=== PATIENT | female | born 1950 | race Caucasian/White ===

== ENCOUNTER → 2017-11-17 | Outpatient (CLI) | payer MEDICAID ==
[~2017-11-17] MED LIST: ALB0.5V INH; ALPR.5T PO; ALPR1TAB21 PO; ALPR2TAB6 PO; ASP325TEC PO; ASP81CT PO; AZIT-21 PO; CETI10TA17 PO; CLOP75TA PO; CYCL10TA9 PO; DCS100C PO; DESV50TA PO; ENAL5TAB PO; EZET1TAB43 PO; FLUT1DIS26 INH; GAS RELIEF PO; GFN600TCR PO; GLIP10TA13 PO; GLIP5TAB13 PO; GUAI100L13 PO; HCT25T PO; HYDR-3714 PO; HYDR12.570 PO; HYDR1TAB66 PO; HYDR50TA3 PO; IBP800T PO; IPRA15SP2; IPRA3AMP; IPRA3AMP IH; LACT1CAP39 PO; LACT1TAB10 PO; LANS30CA PO; LEVO500T69 PO; LEVO750T24 PO; LEVO750T6 PO; LNS30CCR PO; LRT10T PO; LVF500T PO; METH4TAB PO; METO-333 PO; METO-354 PO; NAMENDA; NFR150C PO; NITR-65 PO; OMEP20CA12 PO; ONDA-42 SL; ONDA8TAB2 PO; PHEN200T27 PO; POLY17PO23 PO; RT-COMBINH INH; SCR1T1 PO; TIOT18CA IH; TIOT18CA INH; TIOT18CA2 PO
--- NOTE | 2017-11-17 11:49 | Diagnostic Imaging Report ---
INDICATION: Routine screening. COMPARISON: Comparison is made with prior mammograms from 06/13/2013 and 08/31/2011. TECHNIQUE: 2D and 3D bilateral screening mammography was performed with computer-aided detection (CAD) system. FINDINGS: Scattered fibroglandular densities are identified bilaterally. The parenchymal pattern is stable. No spiculated mass or malignant appearing microcalcifications are seen. There are benign calcifications bilaterally. The axillae are unremarkable. IMPRESSION: No mammographic features suspicious for malignancy are identified. ACR BI-RADS Category 2: Benign findings. Result letter will be mailed to the patient. Note: At least 10% of breast cancer is not imaged by mammography. Dictated by: Dictated on workstation # [id number]
== END ==
LOC: RAD 09:28
PROVIDERS: ATTEND Nurse Practitioner Community Health
DX: Z12.31 Encounter for screening mammogram for malignant neoplasm of breast (principal)
CPT/HCPCS: 77067

== ENCOUNTER → 2019-10-31 | Outpatient (CLI) | payer MEDICAID ==
--- NOTE | 2019-10-31 13:10 | Diagnostic Imaging Report ---
INDICATION: Routine screening. Comparison is made with prior mammogram 11/17/2017 and 06/13/2013. 2-D and 3-D bilateral screening mammography was performed with CAD. Scattered fibroglandular densities are identified bilaterally. The parenchymal pattern is stable. No mass or malignant-appearing microcalcifications are seen. There are benign calcifications bilaterally. Axillae are unremarkable. IMPRESSION: BI-RADS Category 2 No mammographic features suspicious for malignancy are identified. ACR BI-RADS Category 2: Benign findings. Result letter will be mailed to the patient. Note: At least 10% of breast cancer is not imaged by mammography. Dictated by: Dictated on workstation # [id number]
== END ==
LOC: RAD 11:23
PROVIDERS: ATTEND Nurse Practitioner Community Health
DX: Z12.31 Encounter for screening mammogram for malignant neoplasm of breast (principal)
CPT/HCPCS: 77063; 77067

== ENCOUNTER → 2020-08-19 | Outpatient (CLI) | payer MEDICAID ==
[~2020-08-19] MED LIST changes: +RT-ALBUTEROL SULF 2.5 MG/3 ML PRE-MIX VIAL INH ONE
== END ==
LOC: RT 12:41
PROVIDERS: ATTEND Nurse Practitioner Family
DX: J44.9 Chronic obstructive pulmonary disease, unspecified (principal); G47.10 Hypersomnia, unspecified; Z86.69 Personal history of other diseases of the nervous system and sense organs
CPT/HCPCS: 94060; 94726; 94729

== ENCOUNTER → 2021-03-25 | Outpatient (CLI) | payer MEDICAID ==
[~2021-03-25] MED LIST changes: -RT-ALBUTEROL SULF 2.5 MG/3 ML PRE-MIX VIAL INH ONE
--- NOTE | 2021-03-26 09:49 | Diagnostic Imaging Report ---
Indication: Routine screening. Comparison is made with prior mammogram 10/31/2019 and 11/17/2017. 2-D and 3-D bilateral screening mammography was performed with CAD. Scattered fibroglandular densities are identified bilaterally. There are benign calcifications present. No mass or malignant-appearing microcalcifications are seen. Axillae are unremarkable. IMPRESSION: BI-RADS Category 2 No mammographic features suspicious for malignancy are identified. ACR BI-RADS Category 2: Benign findings. Result letter will be mailed to the patient. Note: At least 10% of breast cancer is not imaged by mammography. Dictated by: Dictated on workstation # [id number]
== END ==
LOC: RAD 14:57
PROVIDERS: ATTEND Nurse Practitioner
DX: Z12.31 Encounter for screening mammogram for malignant neoplasm of breast (principal)
CPT/HCPCS: 77063; 77067

== ENCOUNTER → 2021-10-21 | Outpatient (CLI) | payer MEDICAID | LOC: CARD 14:21 | PROVIDERS: ATTEND Physician Assistant | DX: I10 Essential (primary) hypertension (principal); R07.89 Other chest pain; E78.2 Mixed hyperlipidemia; R06.00 Dyspnea, unspecified | CPT/HCPCS: 93306 ==

== ENCOUNTER → 2021-11-10 | Outpatient (CLI) | payer MEDICAID | LOC: LABNPT 08:18 | PROVIDERS: ATTEND Internal Medicine Critical Care Medicine | DX: Z01.812 Encounter for preprocedural laboratory examination (principal); G47.33 Obstructive sleep apnea (adult) (pediatric) | CPT/HCPCS: 87636 ==

== ENCOUNTER 2021-11-12 19:27 | Outpatient (CLI) | payer MEDICAID | END 2021-11-13 06:15 | disposition home or self-care (01) | LOC: SLEEP 19:27 | PROVIDERS: ATTEND Internal Medicine Critical Care Medicine | DX: G47.33 Obstructive sleep apnea (adult) (pediatric) (principal) | CPT/HCPCS: 95810 ==

== ENCOUNTER → 2021-12-20 | Outpatient (CLI) | payer MEDICAID ==
[~2021-12-20] VITALS: Ht 165 cm; Wt 91.0 kg
[~2021-12-20] MED LIST changes: +REGADENOSON 0.4 MG/5 ML SYR (LEXISCAN) IV ONE
[2021-12-20] MEDS: CATHETER FLUSH 10 ML SYR IVP PRN ×2 (08:09→09:27)
[2021-12-20 09:26] VITALS: BP 193/102
--- NOTE | 2021-12-20 12:04 | Cardiology Stress Test Report ---
Stress Test Report Date of Procedure/Referring: Date of Procedure: Dec 20, 2021 [facility] Admitting Physician Admitting Physician: Attending Physician: Ana Maria Vizcaino Indications: HTN Baseline Heart Rate: 64 Baseline Blood Pressure: Blood Pressure Systolic: 193 Blood Pressure Diastolic: 102 Baseline Vitals Vital Signs Date Time Temp Pulse Resp B/P (MAP) Pulse Ox O2 Delivery O2 Flow Rate FiO2 12/20/21 09:26 66 16 193/102 (132) 95 Room Air Baseline EKG: Baseline EKG: NSR Summary After explaining the procedure to the patient, she signed a consent and then brought to the stress nuclear laboratory. Patient received 0.4 mg Lexiscan for stress test, ECG, heart rate and blood pres sure were monitored continuously. Resting and stress dose of radio tracer were injected, imaging was acquired and reviewed in short axis, horizontal long axis and vertical long axis views. TID: 0.98 SSS: 6 SDS: 6 EF: 61 1. Patient tolerated Lexiscan well 2. Breast attenuation with reversible ischemia involving the basal to mid anterior wall and anterior septum 3. Normal left ventricular size, ejection fraction 61% Copy Copies To 1: [facility] [place]ART[place]NEZ COLLINS MD Dec 20, 2021 12:04
== END ==
LOC: CARD 07:48
PROVIDERS: ATTEND Physician Assistant
DX: I10 Essential (primary) hypertension (principal); E78.2 Mixed hyperlipidemia; R07.89 Other chest pain; R06.00 Dyspnea, unspecified
CPT/HCPCS: 78452; 93017

== ENCOUNTER 2021-12-29 11:00 | Day surgery (SDC) | payer MEDICAID ==
[~2021-12-29] VITALS: Ht 165 cm; Wt 94.6 kg
[2021-12-29] VITALS (13 sets, daily range): BP systolic 96–184; BP diastolic 51–107
--- NOTE | 2021-12-29 09:48 | Diagnostic Imaging Report ---
INDICATION: Chest pain, shortness of breath. EXAMINATION: Portable chest at 9:18 AM. FINDINGS: The heart size and pulmonary vascularity are normal. The lungs are clear. There are no effusions or pneumothoraces. IMPRESSION: No acute abnormalities in the chest. Dictated by: Dictated on workstation # [id number]
[2021-12-29 10:28] LABS: HEMATOCRIT 42 % (35-52); HEMOGLOBIN 13.4 g/dL (11.5-16.0); MEAN CORPUSCULAR HEMOGLOBIN 29 pg (25-34); MEAN CORPUSCULAR HGB CONC 32 g/dL (32-36); MEAN CORPUSCULAR VOLUME 91 fL (80-99); MEAN PLATELET VOLUME 8.9 fL (9.0-12.2); PLATELET COUNT 496 10^3/uL (130-400); WHITE BLOOD COUNT 11.5 10^3/uL (4.3-11.0)
[2021-12-29 10:36] LABS: BILIRUBIN,URINE NEGATIVE (NEGATIVE); CLARITY,URINE CLEAR; COLOR,URINE YELLOW; GLUCOSE, URINE (UA) NEGATIVE (NEGATIVE); KETONES,URINE NEGATIVE (NEGATIVE); LEUKOCYTE ESTERASE ,URINE TRACE (NEGATIVE); NITRITE,URINE NEGATIVE (NEGATIVE); PROTEIN,URINE NEGATIVE (NEGATIVE)
[2021-12-29 10:47] LABS: ALBUMIN 3.9 GM/DL (3.2-4.5); BILIRUBIN,TOTAL 0.3 MG/DL (0.1-1.0); CALCIUM 9.3 MG/DL (8.5-10.1); CREATININE SERUM 0.71 MG/DL (0.60-1.30); POTASSIUM 4.9 MMOL/L (3.6-5.0); TOTAL PROTEIN 6.5 GM/DL (6.4-8.2)
[2021-12-29 10:57] LABS: INR 0.9 (0.8-1.4); PROTHROMBIN TIME PATIENT 12.9 SEC (12.2-14.7)
[~2021-12-29 11:00] MED LIST changes: +HEParin (CATH LAB) 2,000 ML IV ONE; +LIDOCAINE 1% INJ 20 ML VIAL ONE; +NS IV 1000 ML 1,000 ML IV SCH; +NS IV 1000 ML 1,000 ML ONE; -REGADENOSON 0.4 MG/5 ML SYR (LEXISCAN) IV ONE
[2021-12-29 11:02] LABS: BACTERIA,URINE NEGATIVE /HPF; RBC,URINE RARE /HPF; SQUAMOUS EPITHELIAL CELL,UR 0-2 /HPF; WBC,URINE 0-2 /HPF
[2021-12-29] MEDS ORDERED: FENO145T26 PO (11:08)
[2021-12-29] MEDS ORDERED: FERR-74 PO (11:08)
[2021-12-29] MEDS ORDERED: TIOT18CA2 IH (11:08)
[2021-12-29] MEDS ORDERED: NAPR-915 PO (11:08)
[2021-12-29] MEDS ORDERED: METF-478 PO ×2 (11:08→14:01)
[2021-12-29] MEDS ORDERED: ALBU2.5V4 INH (11:08)
[2021-12-29] MEDS ORDERED: LEVO100C4 PO (11:08)
[2021-12-29] MEDS ORDERED: GLIP5TAB13 PO (11:08)
[2021-12-29] MEDS ORDERED: ACET-2267 PO (11:08)
[2021-12-29] MEDS ORDERED: OXYB-52 PO (11:08)
[2021-12-29] MEDS ORDERED: MTC10T PO (11:08)
[2021-12-29] MEDS ORDERED: SIME125T PO (11:08)
[2021-12-29] MEDS ORDERED: CETI10TA17 PO (11:08)
[2021-12-29] MEDS ORDERED: LACT1TAB19 PO (11:08)
[2021-12-29] MEDS ORDERED: CLOP75TA28 PO (11:08)
[2021-12-29] MEDS ORDERED: RT-ALBUINH IH (11:08)
[2021-12-29] MEDS ORDERED: ASPI-1238 PO (11:08)
[2021-12-29] MEDS ORDERED: DOCU-143 PO (11:08)
[2021-12-29] MEDS ORDERED: LISI20TA26 PO (11:08)
[2021-12-29] MEDS ORDERED: ATOR40TA70 PO (11:08)
[2021-12-29] MEDS ORDERED: MTP25TSR PO (11:08)
[2021-12-29] MEDS ORDERED: DESV100T6 PO (11:08)
[2021-12-29] MEDS ORDERED: BUDE10.2 IH (11:08)
[2021-12-29] MEDS ORDERED: NITRO DRIP 25000 MCG/D5W 0 ML IV ONE (13:09)
[2021-12-29] MEDS ORDERED: MIDAZOLAM 2 MG/2 ML (VERSED) VIAL ONE ×2 (13:09→13:47)
[2021-12-29] MEDS ORDERED: VERAPAMIL 5 MG/2 ML (CALAN) VIAL IV ONE (13:09)
[2021-12-29] MEDS ORDERED: HEParin 1000 UNIT/ML (10ML VIAL) FOR BOLUS ONE (13:09)
[2021-12-29] MEDS ORDERED: fentaNYL INJ 100 MCG/2 ML AMP ONE ×2 (13:09→13:47)
--- NOTE | 2021-12-29 13:23 | Cardiac Procedure Note-CS/ASA ---
Pre-Procedure Note Pre-Op Procedure Note Date of Available H&P: Dec 21, 2021 Date H&P Reviewed: Dec 29, 2021 Time H&P Reviewed: : History & Physical: H&P Reviewed, Patient Examed, No changes noted Pre-Operative Diagnosis: CAD Conscious Sedation Pre-Proced Time : ASA Score 3 For ASA 3 and 4: Consider anesthesia and medical clearance. Also, for patients with a history of failed moderate sedation consider anesthesia. Airway Lungs Heart ASA score ASA 1: a normal healthy patient ASA 2: a patient with a mild systemic disease (mid diabetes, controlled hypertension, obesity ASA 3: a patient with a severe systemic disease that limits activity (angina, COPD, prior Myocardial infarction) ASA 4: a patient with an incapacitating disease that is a constant threat to life (CHF, renal failure) ASA 5: a moribund patient not expected to survive 24 hrs. (ruptured aneurysm) ASA 6: a declared brain- patient whose organs are being harvested. For emergent operations, add the letter E after the classification Mallampati Classification Grade 3 Sedation Plan Analgesia, Amnesia, Plan communicated to team members, Discussed options with patient/fam, Discussed risks with patient/fam The patient is an appropriate candidate to undergo the planned procedure, sedation, and anesthesia. The patient immediately re-assessed prior to indication. MARTÍNEZ COLLINS MD Dec 29, 2021 13:23
[2021-12-29] MEDS ORDERED: PATIENT MAY USE OWN MEDS, ALL PO SCH (14:00)
--- NOTE | 2021-12-29 14:02 | Discharge Inst-Post CATH ---
Discharge Inst-CATH/EP Problems Reviewed?: Yes Post Cardiac Cath/EP D/C Inst Follow Up/Plan Hold metformin for [address] Chang's office in 4 weeks <b>CARDIAC CATH/EP PROCEDURE DISCHARGE INSTRUCTIONS</b> ACTIVITY * Go Home directly and rest. * Limit activity of the leg (or wrist if it was used) for 7 days including aerobics, swimming, jogging, bicycling, etc. * Restrict stair-climbing for 7 days if possible, if not, climb up with your non-cath leg, then bring together on the same step. * Avoid lifting, pushing, pulling or excessive movement of the affected extremity for 7 days. * Customary sexual activity may be resumed after 2 days-use caution not to use a position that strains or causes pain to the affected extremity. * No driving for 24 hours. * NO SMOKING. * Avoid straining for bowel movements for 7 days. * Gentle walking on level ground is allowed. * Returning to work will depend on the type of procedure and the results. Your doctor will discuss this with you. CALL YOUR DOCTOR FOR ANY OF THE FOLLOWING: *If bleeding from the puncture site occurs- Apply gentle pressure to site with clean cloth and call your doctor or EMS. * If a knot or lump forms under the skin, increases in size, or causes pain. * If bruising appears to be worsening or moving further down your leg instead of disappearing. * Temperature above 101 F. CARE OF YOUR GROIN INCISION; * Bruising or purple discoloration of the skin near the puncture site is common. * You may shower only, no bathtub bathing for 5 days. Be careful to avoid slipping as your leg may feel stiff. * If a closure device was used on your femoral artery, please see the attached guide regarding care of the device and your leg. * Leave dressing on FOR 24 hours. CARE OF YOUR WRIST INCISION; * Bruising or purple discoloration of the skin near the puncture site is common. * You may shower. * DO NOT submerge wrist. * Leave dressing on FOR 24 hours. MARTÍNEZ CHANG MD Dec 29, 2021 14:02
--- NOTE | 2021-12-29 14:05 | Cardiac Cath Report ---
Cardiac Cath Report Physician (s)/Party Host/Hostess (s) Physician MARTÍNEZ COLLINS MD Pre-Procedure Diagnosis Pre-Procedure Diagnosis: CAD Post-Procedure Note Procedure Start Date: Dec 29, 2021 Name of Procedure: Left heart catheterization Findings/Procedure Note PROCEDURE NOTE: 71-year-old lady with history of diabetes mellitus, hypertension, hyperlipidemia and obesity, had an abnormal stress test, scheduled for cardiac catheterization possible PTCA. After explaining the procedure to the patient, all pros and cons were explained, all questions were answered. The patient signed the consent and then she was placed on the cardiac catheterization laboratory. Groin was prepped SL fashion local anesthesia was used. Attempt to access the right radial artery has failed, I was unable to advance a wire in the radial artery, manual pressure a pplied. Sheath placed in the right femoral artery. Matthew right and left catheter were used to access the coronary system. Matthew right was prolapsed to the left ventricular cavity, pressure was measured, pullback LV to aorta was done, no left ventriculogram was done. At the end of the procedure the sheath was removed. Closure device was deployed FINDINGS: Hemodynamics LV 152/14, end-diastolic pressure of 14 Aorta 147/75 mean of 105 ANATOMY: Left Main is free of obstructive disease Left Anterior Descending has moderate ectasia in the proximal and mid LAD with slow flow, otherwise nonobstructive disease Left Circumflex has moderate ectasia in the proximal and mid circumflex artery with slow flow nonobstructive disease Right Coronary Artery is dominant artery with diffuse ectasia and slow flow nono bstructive disease LV Gram was not done, pressure was measured CONCLUSION: 1. Moderate coronary ectasia involving the 3 coronary system with swirling of the contrast in the proximal and mid arteries nonobstructive disease 2. Normal left ventricular end-diastolic pressure DISCUSSION AND RECOMMENDATION: Continue to maximize medical therapy, continue to keep blood pressure and lipids under tight control and weight loss and exercise is recommended Anesthesia Type: Conscious Sedation Estimated blood loss (mL): 20 ml Contrast Amount: 52 ml Total Radiation Dose: 548 mGy Post-Procedure Diagnosis Post-operative diagnosis: Chest pain Coronary artery disease Hypertension Hyperlipidemia MARTÍNEZ COLLINS MD Dec 29, 2021 14:05
[2021-12-29] MEDS ORDERED: ONDANSETRON 4 MG/2 ML (SDV) Z0FRAN ONE (16:07)
[2021-12-29 16:47] LABS: HEMATOCRIT 32 % (35-52); HEMOGLOBIN 10.3 g/dL (11.5-16.0); MEAN CORPUSCULAR HEMOGLOBIN 30 pg (25-34); MEAN CORPUSCULAR HGB CONC 32 g/dL (32-36); MEAN CORPUSCULAR VOLUME 92 fL (80-99); MEAN PLATELET VOLUME 9.3 fL (9.0-12.2); PLATELET COUNT 469 10^3/uL (130-400)
--- NOTE | 2021-12-29 16:58 | Diagnostic Imaging Report ---
INDICATION: Central line placement. COMPARISON: Earlier same day. FINDINGS: Single frontal radiographic view of the chest was obtained and demonstrates interval placement of right internal jugular central venous catheter, tip of which terminates in the [id number] SVC. Cardiac silhouette and pulmonary vasculature are stable. Lungs remain clear. There is no large effusion or pneumothorax. Osseous structures show no gross acute abnormalities. IMPRESSION: 1. New right internal jugular central venous catheter as above. 2. Otherwise, stable exam of the chest. Dictated by: Dictated on workstation # [id number]
--- NOTE | 2021-12-29 17:00 | Consultation - Surgery ---
History of Present Illness History of Present Illness Patient Consulted On(gabe/time) 12/29/21 16:52 Date Seen by Provider: Dec 29, 2021 Time Seen by Provider: 16:52 History of Present Illness Consult requested by Dr. Chang for central line placement for hypotension post cath. Patient is a 71 year old female who underwent heart catheterization. In postop area became hypotensive. Not with good venous access and needing central venous access. Patient is alert and answering questions. She understands need for placement. Placing emergently. Allergies and Home Medications Allergies Coded Allergies: prednisone (Verified Allergy, Intermediate, STATES MAKES FEEL LIKES SHE IS ON METH, 09/19/11) morphine (Verified Adverse Reaction, Mild, CAUSES SEVERE VOMITTING, 09/19/11) CAUSES N/V Patient Home Medication List Home Medication List Reviewed: Yes Acetaminophen (Tylenol Extra Strength) 500 Mg Tablet, 1,000 MG PO TID PRN for PAIN-MILD (1-4), (Reported) Entered as Reported by: RADHA UGARTE on 12/29/211107 Last Action: Reviewed Albuterol Sulfate (Albuterol Sulfate) 2.5 Mg/3 Ml (0.083 %) Vial.neb, 2.5 MG INH Q6H PRN for SHORTNESS OF BREATH, (Reported) Entered as Reported by: RADHA UGARTE on 12/29/211107 Last Action: Reviewed Albuterol Sulfate (Proair Hfa) 1 Puff Puff, 2 PUFF IH Q4H PRN for SHORTNESS OF BREATH, (Reported) Entered as Reported by: RADHA UGARTE on 12/29/211107 Last Action: Reviewed Aspirin (Aspirin EC) 81 Mg Tablet.dr, 81 MG PO HS, (Reported) Entered as Reported by: RADHA UGARTE on 12/29/211107 Last Action: Reviewed Atorvastatin Calcium (Atorvastatin Calcium) 40 Mg Tablet, 40 MG PO DAILY, (Reported) Entered as Reported by: RADHA UGARTE on 12/29/211107 Last Action: Reviewed Budesonide/Formoterol Fumarate (Symbicort 160-4.5 Mcg Inhaler) 160 Mcg-4.5 Mcg/Actuation Hfa.aer.ad, 2 PUFF IH BID, (Reported) Entered as Reported by: RADHA UGARTE on 12/29/211107 Last Action: Reviewed Cetirizine HCl (Cetirizine HCl) 10 Mg Tablet, 10 MG PO DAILY, (Reported) Entered as Reported by: RADHA UGARTE on 12/29/211107 Last Action: Reviewed Clopidogrel Bisulfate (Clopidogrel) 75 Mg Tablet, 75 MG PO DAILY, (Reported) Entered as Reported by: RADHA UGARTE on 12/29/211107 Last Action: Reviewed Desvenlafaxine (Desvenlafaxine ER) 100 Mg Tab.er.24h, 100 MG PO DAILY, (Reported) Entered as Reported by: RADHA UGARTE on 12/29/211107 Last Action: Reviewed Docusate Sodium (Colace) 100 Mg Capsule, 200 MG PO DAILY, (Reported) Entered as Reported by: RADHA UGARTE on 12/29/211107 Last Action: Reviewed Fenofibrate Nanocrystallized (Fenofibrate) 145 Mg Tablet, 145 MG PO HS, (Reported) Entered as Reported by: RADHA UGARTE on 12/29/211107 Last Action: Reviewed Ferrous Sulfate (Ferrous Sulfate) 325 Mg (65 Mg Iron) Tablet, 325 MG PO HS, (Reported) Entered as Reported by: RADHA UGARTE on 12/29/211107 Last Action: Reviewed Glipizide (Glipizide) 5 Mg Tablet, 5 MG PO TID, (Reported) Entered as Reported by: RADHA UGARTE on 12/29/211107 Last Action: Reviewed Lactobacillus Acidophilus (Acidophilus) 2 Billion Cell Tablet, 1 EACH PO HS, (Reported) Entered as Reported by: RADHA UGARTE on 12/29/211107 Last Action: Reviewed Levothyroxine Sodium (Levothyroxine) 100 Mcg Capsule, 100 MCG PO DAILY, (Reported) Entered as Reported by: RADHA UGARTE on 12/29/211107 Last Action: Reviewed Lisinopril (Lisinopril) 20 Mg Tablet, 20 MG PO DAILY, (Reported) Entered as Reported by: RADHA UGARTE on 12/29/211107 Last Action: Reviewed Metformin HCl (Metformin HCl ER) 500 Mg Tab.er.24, 500 MG PO BID Prescribed by: MARTÍNEZ CHANG on 12/29/21 1401 Metoclopramide HCl (Metoclopramide HCl) 10 Mg Tablet, 10 MG PO QID, (Reported) Entered as Reported by: RADHA UGARTE on 12/29/211107 Last Action: Reviewed Metoprolol Succinate (Metoprolol Succinate) 25 Mg Tab.er.24h, 25 MG PO HS, (Reported) Entered as Reported by: RADHA UGARTE on 12/29/211107 Last Action: Reviewed Naproxen (Naproxen) 500 Mg Tablet, 500 MG PO BID, (Reported) Entered as Reported by: RADHA UGARTE on 12/29/211107 Last Action: Reviewed Oxybutynin Chloride (Oxybutynin Chloride ER) 5 Mg Tab.er.24, 5 MG PO HS, (Reported) Entered as Reported by: RADHA UGARTE on 12/29/211107 Last Action: Reviewed Simethicone (Gas-X) 125 Mg Tab.chew, 125 MG PO HS, (Reported) Entered as Reported by: RADHA UGARTE on 12/29/211107 Last Action: Reviewed Tiotropium [place] (Spiriva) 18 Mcg Aerp, 1 INH IH DAILY, (Reported) Entered as Reported by: RADHA UGARTE on 12/29/211107 Last Action: Reviewed Discontinued Medications Alprazolam (Alprazolam) 2 Mg Tablet, 2 MG PO BID, (Reported) Discontinued Reason: No Longer Taking Entered as Reported by: NICOLASA EDWARDS on 01/08/141533 Last Action: Discontinued Aspirin (Aspirin Ec 325 Mg) 325 Mg Tabec, 325 MG PO 1800, (Reported) Discontinued Reason: No Longer Taking Entered as Reported by: CLAIRE MATUTE on 10/31/09 1610 Last Action: Discontinued Cetirizine Hcl (Cetirizine Hcl) 10 Mg Tablet, 10 MG PO DAILY, (Reported) Discontinued Reason: No Longer Taking Entered as Reported by: NICOLASA EDWARDS on 01/08/141533 Last Action: Discontinued Clopidogrel Bisulfate (Plavix 75 Mg) 75 Mg Tablet, 75 MG PO DAILY, (Reported) Discontinued Reason: No Longer Taking Entered as Reported by: SARAH GIRALDO on 10/31/09 0937 Last Action: Discontinued Cyclobenzaprine Hcl (Cyclobenzaprine Hcl) 10 Mg Tablet, 10 MG PO TID PRN for MUSCLE SPASMS, (Reported) Discontinued Reason: No Longer Taking Entered as Reported by: JERSON BOLTON on 08/26/10 1654 Last Action: Discontinued Desvenlafaxine Succinate (Pristiq) 50 Mg Tab.sr.24h, 50 MG PO DAILY, (Reported) Discontinued Reason: No Longer Taking Entered as Reported by: ANNY KHALIL on 09/19/11 1922 Last Action: Discontinued Docusate Sodium (Colace) 100 Mg Capsule, 200 MG PO DAILY, (Reported) Discontinued Reason: No Longer Taking Entered as Reported by: NICOLASA EDWARDS on 01/08/14 1544 Last Action: Discontinued Enalapril Maleate (Enalapril Maleate) 5 Mg Tablet, 5 MG PO BID, (Reported) Discontinued Reason: No Longer Taking Entered as Reported by: SARAH GIRALDO on 10/31/09 0937 Last Action: Discontinued Ezetimibe/Simvastatin (Vytorin 10-20 Mg Tablet) 1 Each Tablet, 1 TAB PO 1800, (Reported) Discontinued Reason: No Longer Taking Entered as Reported by: NICOLASA EDWARDS on 01/08/14 1537 Last Action: Discontinued Fluticasone/Salmeterol (Advair 250 Mcg/50 Mcg 60's) 1 Disk Inhp, 1 PUFF INH BID, (Reported) Discontinued Reason: No Longer Taking Entered as Reported by: NICOLASA EDWARDS on 01/08/14 1534 Last Action: Discontinued Glipizide (Glipizide) 5 Mg Tablet, 5 MG PO TID, (Reported) Discontinued Reason: No Longer Taking Entered as Reported by: DAMIAN BUCHANAN on 01/17/121513 Last Action: Discontinued Hydrochlorothiazide (Hctz) 12.5 Mg Cap, 12.5 MG PO DAILY, (Reported) Discontinued Reason: No Longer Taking Entered as Reported by: DAMIAN BUCHANAN on 01/17/121513 Last Action: Discontinued Hydrocodone Bit/Acetaminophen (Hydrocodone-Apap 5-325 Tab) 1 Tab Tablet, 0.5-1 TAB PO Q4H PRN for PAIN Discontinued Reason: No Longer Taking Prescribed by: TOYA MARTINES on 06/03/14 1818 Last Action: Discontinued Ibuprofen (Motrin Tablet) 800 Mg Tablet, 800 MG PO TID PRN for PAIN, (Reported) Discontinued Reason: No Longer Taking Entered as Reported by: CHRISTINE BYRD on 03/31/11 1412 Last Action: Discontinued Ipratropium/Albuterol Sulfate (Combivent Inhaler) 14.7 Gm Aer.w.adap, 2 PUFF INH Q12H PRN for SHORTNESS OF BREATH, (Reported) Discontinued Reason: No Longer Taking Entered as Reported by: SARAH GIRALDO on 10/31/09 0937 Last Action: Discontinued Lactobacillus Acidophilus (Acidophilus) 1 Each Tablet, 1 TAB PO 1800, (Reported) Discontinued Reason: No Longer Taking Entered as Reported by: NICOLASA EDWARDS on 01/08/14 1544 Last Action: Discontinued Lansoprazole (Lansoprazole) 30 Mg Capsule.dr, 30 MG PO DAILY, (Reported) Discontinued Reason: No Longer Taking Entered as Reported by: NICOLASA EDWARDS on 01/08/14 1537 Last Action: Discontinued Metoclopramide Hcl (Reglan 10 Mg Tab) 10 Mg Tab, 20 MG PO BIDAC, (Reported) Discontinued Reason: No Longer Taking Entered as Reported by: CLEMENTINE CHARLES on 01/20/12 1128 Last Action: Discontinued Metoprolol Tartrate (Lopressor 25 Mg Tab) 25 Mg Tablet, 25 MG PO BID, (Reported) Discontinued Reason: No Longer Taking Entered as Reported by: ROZ WANG on 04/05/112002 Last Action: Discontinued Nitrofurantoin/Nitrofuran Mac (Macrobid) 100 Mg Capsule, 1 EACH PO BID Discontinued Reason: No Longer Taking Prescribed by: SHARONA MCKEON on 09/19/14 1606 Last Action: Discontinued Omeprazole (Omeprazole) 20 Mg Capsule.dr, 20 MG PO DAILY, (Reported) Discontinued Reason: No Longer Taking Entered as Reported by: JERSON BOLTON on 09/19/14 1415 Last Action: Discontinued Ondansetron Hcl (Zofran Oral Dissolve) 4 Mg Tab, 4 MG SL Q4H PRN Discontinued Reason: No Longer Taking Prescribed by: TOYA MARTINES on 06/03/14 1818 Last Action: Discontinued Phenazopyridine Hcl (Pyridium) 200 Mg Tablet, 1 EACH PO TID PRN for BLADDER DISCOMFORT Discontinued Reason: No Longer Taking Prescribed by: SHARONA MCKEON on 09/19/14 1606 Last Action: Discontinued Polyethylene Glycol (Miralax 17 Gm Packet) 17 Gm Pack, 17 GM PO DAILY PRN for CONSTIPATION, (Reported) Discontinued Reason: No Longer Taking Entered as Reported by: SARAH GIRALDO on 10/31/09 0937 Last Action: Discontinued Polysaccharide Iron Complex (Niferex) 150 Mg Cap, 150 MG PO 1800, (Reported) Discontinued Reason: No Longer Taking Entered as Reported by: CLEMENTINE CHARLES on 01/20/12 1128 Last Action: Discontinued Tiotropium [place] (Spiriva) 1 Inh Aerp, 1 CAP PO DAILY, (Reported) Discontinued Reason: No Longer Taking Entered as Reported by: NICOLASA EDWARDS on 01/08/14 1534 Last Action: Discontinued [Gas Relief] , 2 TAB PO 1800, (Reported) Discontinued Reason: No Longer Taking Entered as Reported by: NICOLASA EDWARDS on 01/08/14 1544 Last Action: Discontinued [Namenda] , (Reported) Discontinued Reason: No Longer Taking Entered as Reported by: JERSON BOLTON on 09/19/14 1415 Last Action: Discontinued Past Peynxyz-Ipdkti-Dasgyr Hx Immunizations Up To Date Date of Influenza Vaccine: Feb 08, 2011 Surgeries Surgeries: Appendectomy, Gallbladder Respiratory Respiratory Disorders: COPD Cardiovascular Cardiac Disorders: High Cholesterol, Hypertension Neurological Neurological Disorders: Stroke Reproductive System Hx Reproductive Disorders: No [employer] History: Tubal Ligation Gastrointestinal Gastrointestinal Disorders: Gastroesophageal Reflux Musculoskeletal Musculoskeletal Disorders: Arthritis, Fibromyalgia, Chronic Back Pain Endocrine Endocrine Disorders: Diabetes, Non-Insulin dep Psychosocial Behavioral Health Disorders: Anxiety, Depression Reviewed Nursing Assessment Reviewed/Agree w Nursing PMH: Yes Family Medical History Significant Family History: No Pertinent Family Hx Review of Systems-General ROS-Unable to Obtain: not able to provide at this time placing emergently Physical Exam-General Problems Physical Exam Vital Signs Vital Signs - First Documented 12/29/21 09:29 Temp 36.0 Pulse 69 Resp 19 B/P (MAP) 184/107 (132) Pulse Ox 86 Capillary Refill : General Appearance: obese, other (slightly diaphoretic) HEENT: PERRL/EOMI Neck: non-tender, supple Respiratory: chest non-tender, no respiratory distress Cardiovascular: regular rate, rhythm, no JVD Gastrointestinal: non tender, soft, other (pressure being held left groin) Rectal: deferred Extremities: non-tender Neurologic/Psychiatric: alert, normal mood/affect Skin: normal color, diaphoresis Lymphatic: no adenopathy Data Review Labs Laboratory Tests 12/29/21 09:14: Urine Color YELLOW, Urine Clarity CLEAR, Urine pH 7.0, Urine Specific [place] 1.015L, Urine Protein NEGATIVE, Urine Glucose (UA) NEGATIVE, Urine Ketones NEGATIVE, Urine Nitrite NEGATIVE, Urine Bilirubin NEGATIVE, Urine Urobilinogen 0.2, Urine Leukocyte Esterase TRACEH, Urine RBC (Auto) NEGATIVE, Urine RBC RARE, Urine WBC 0-2, Urine Squamous Epithelial Cells 0-2, Urine Crystals NONE, Urine Bacteria NEGATIVE, Urine Casts NONE, Urine Mucus NEGATIVE, Urine Culture Indicated NO 12/29/21 10:21: White Blood Count 11.5H, Red Blood Count 4.56, Hemoglobin 13.4, Hematocrit 42, Mean Corpuscular Volume 91, Mean Corpuscular Hemoglobin 29, Mean Corpuscular Hemoglobin Concent 32, Red Cell Distribution Width 13.2, Platelet Count 496H, Mean Platelet Volume 8.9L, Prothrombin Time 12.9, INR Comment 0.9, Activated Partial Thromboplast Time 33, Sodium Level 131L, Potassium Level 4.9, Chloride Level 97L, Carbon Dioxide Level 26, Anion Gap 8, Blood Urea Nitrogen 11, Crea tinine 0.71, Estimat Glomerular Filtration Rate 92, BUN/Creatinine Ratio 15, Glucose Level 109H, Calcium Level 9.3, Corrected Calcium 9.4, Total Bilirubin 0.3, Aspartate Amino Transf (AST/SGOT) 14, Alanine Aminotransferase (ALT/SGPT) 1 9, Alkaline Phosphatase 51, Total Protein 6.5, Albumin 3.9, Triglycerides Level 106, Cholesterol Level 157, LDL Cholesterol Direct 91, VLDL Cholesterol 21, HDL Cholesterol 54 12/29/21 16:30: Assessment/Plan Assessment/Plan Assessment/Plan hypotension s/p cardiac catheterization Poor venous access Placing central line emergently. Chest x ray to follow. PROCEDURE: U/s guided right IJ central line placement. Right neck prepped and draped in sterile fashion. Time out performed. Everyone agreed. 3 mL of 1 % lidocaine was used to anesthetize the area. Under u/s dawn nce right IJ was accessed and dark nonpulsatile blood withdrawn. Guidewire was inserted and needle was removed. 11 Blade was used to make skin incision. Dilator was advanced over wire and removed. Triple lumen catheter was advanced over wire and wire removed. Secured with silk suture. All ports accessed and flushed. Sterile bandage applied after washed and dried. Chest x ray pending. SWETA BELL DO Dec 29, 2021 17:00
[2021-12-29] MEDS ORDERED: NS IV 1000 ML 1,000 ML IV STA (17:13)
[2021-12-29] MEDS: NS IV 1000 ML 1,000 ML IV SCH (17:20)
--- NOTE | 2021-12-29 18:10 | Diagnostic Imaging Report ---
EXAMINATION: CT pelvis without intravenous contrast. TECHNIQUE: Multiple contiguous axial images were obtained through the pelvis without the administration of intravenous contrast. All CT scans use one or more of the following dose optimizing techniques: automated exposure control, MA and/or KvP adjustment based on patient size and exam type or iterative reconstruction. HISTORY: Right femoral artery hematoma. COMPARISON: None available. FINDINGS: There is a pressure dressing applied to the right groin. There is a large hematoma in the right thigh extending below the field of view. No retroperitoneal hemorrhage. The hematoma insinuates through the tissue planes and musculature with the largest discrete collection of blood measuring 5.5 x 2.7 cm. Visualized bowel is normal in caliber without obstruction or inflammation. No free fluid or air. No pelvic lymphadenopathy. Aorta is normal in caliber without aneurysm. There are no suspicious osseus lesions. IMPRESSION: 1. Large right thigh hematoma extending below the field of view. 2. No retroperitoneal bleed. Dictated by: Dictated on workstation # [id number]
--- NOTE | 2021-12-29 21:13 | Tele-ICU Progress Note ---
Progress Note 71F with DM, HTN, HLD presented for planned cardiac cath after abnormal stress. Found to have nonobstructive disease. Became hypotensive in PACU, RIJ CVL placed by surgery. Noted to have hematoma to R groin. Pressure applied x20 min, then femstop applied. Hypotension appears to have resolved with 1L NS bolus, pressors never initiated. - hypotension: with hematoma, hg drop from 13 to 10. Will repeat Hg q4h overnight. Monitor BP, currently 136/81. - DM: insulin sliding scale - CAD: non obstructive, medical management per cardiology Focused Exam Height, Weight, BMI Height: 5'5" Weight: 235lbs. oz. 106.148300tj; 34.30 BMI Method:Stated JERSON RODRIGUEZ MD Dec 29, 2021 21:13
[2021-12-29] MEDS: inSUlin ASPART (NovoLOG) 1 UNIT/0.01 ML (CHARGE PER UNIT) SC SCH (22:04)
[2021-12-30] VITALS (17 sets, daily range): BP systolic 98–155; BP diastolic 55–94
[2021-12-30 01:27] LABS: POTASSIUM 4.1 MMOL/L (3.6-5.0)
[2021-12-30 01:28] LABS: ALBUMIN 3.2 GM/DL (3.2-4.5); BILIRUBIN,TOTAL 0.3 MG/DL (0.1-1.0); CALCIUM 8.3 MG/DL (8.5-10.1); CREATININE SERUM 0.65 MG/DL (0.60-1.30); MAGNESIUM 1.6 MG/DL (1.6-2.4); TOTAL PROTEIN 5.3 GM/DL (6.4-8.2)
[2021-12-30 01:29] LABS: HEMATOCRIT 30 % (35-52); HEMOGLOBIN 9.7 g/dL (11.5-16.0); MEAN CORPUSCULAR HEMOGLOBIN 30 pg (25-34); MEAN CORPUSCULAR HGB CONC 30 g/dL (32-36); MEAN CORPUSCULAR VOLUME 92 fL (80-99); PLATELET COUNT 432 10^3/uL (130-400)
[2021-12-30 01:30] LABS: BASOPHILS % (AUTO) 1 % (0-10); EOSINOPHILS % (AUTO) 0 % (0-10); LYMPHOCYTES % (AUTO) 7 % (12-44); MEAN PLATELET VOLUME 8.9 fL (9.0-12.2); MONOCYTES % (AUTO) 7 % (0-12); NEUTROPHILS # (AUTO) 30.5 X 10^3 (1.8-7.8); NEUTROPHILS % (AUTO) 85 % (42-75)
[2021-12-30 01:31] LABS: BASOPHILS # (AUTO) 0.1 10^3/uL (0.0-0.1); LYMPHOCYTES # (AUTO) 1.3 X 10^3 (1.0-4.0); MONOCYTES # (AUTO) 1.6 X 10^3 (0.0-1.0)
[2021-12-30] MEDS: METOCLOPRAMIDE 10 MG (REGLAN) TAB PO SCH ×3 (01:32→12:36)
[2021-12-30 01:33] LABS: LYMPHOCYTES % (MANUAL) 10 %; MONOCYTES % (MANUAL) 5 %; NEUTROPHILS % (MANUAL) 85 %; RBC MORPH NORMAL
[2021-12-30] MEDS: NS IV 1000 ML 1,000 ML IV SCH ×2 (01:34→08:42)
[2021-12-30 04:11] LABS: HEMATOCRIT 29 % (35-52); HEMOGLOBIN 9.4 g/dL (11.5-16.0); MEAN CORPUSCULAR HEMOGLOBIN 30 pg (25-34); MEAN CORPUSCULAR HGB CONC 32 g/dL (32-36); MEAN CORPUSCULAR VOLUME 93 fL (80-99); MEAN PLATELET VOLUME 9.1 fL (9.0-12.2); PLATELET COUNT 430 10^3/uL (130-400); WHITE BLOOD COUNT 19.9 10^3/uL (4.3-11.0)
[2021-12-30 04:19] LABS: POTASSIUM 4.2 MMOL/L (3.6-5.0)
[2021-12-30 04:20] LABS: CALCIUM 8.3 MG/DL (8.5-10.1)
[2021-12-30 04:25] LABS: CREATININE SERUM 0.66 MG/DL (0.60-1.30)
[2021-12-30] MEDS: inSUlin ASPART (NovoLOG) 1 UNIT/0.01 ML (CHARGE PER UNIT) SC SCH (05:09)
[2021-12-30 05:27] LABS: PHOSPHORUS 3.2 MG/DL (2.3-4.7)
[2021-12-30 05:30] LABS: MAGNESIUM 1.6 MG/DL (1.6-2.4)
[2021-12-30] MEDS ORDERED: KCL 20 MEQ TAB (K-DUR) PO SCH (06:00)
[2021-12-30] MEDS ORDERED: MAGNESIUM 1 GM/100 ML IVPB 100 ML IV SCH (06:00)
[2021-12-30] MEDS ORDERED: NS IV 500 ML 500 ML IV PRN (06:00)
[2021-12-30] MEDS ORDERED: POTASSIUM CL 10MEQ/50ML IVPB 50 ML IV SCH (06:00)
[2021-12-30] MEDS ORDERED: MAGNESIUM 1 GM/100 ML IVPB 200 ML IV ONE (06:33)
[2021-12-30] MEDS: MAGNESIUM 1 GM/100 ML IVPB 100 ML IV SCH ×2 (06:36→06:38)
--- NOTE | 2021-12-30 08:28 | Cardiology Progress Note ---
Subjective Date Seen by Provider: Dec 30, 2021 Time Seen by Provider: 08:27 Subjective/Events-last exam Patient was seen at bedside, having large hematoma and bruising on her thigh. Feeling better Review of Systems General: No Chills, No Night Sweats, No Fatigue, No Malaise, No Appetite, No Other HEENT: No Head Aches, No Visual Changes, No Eye Pain, No Ear Pain, No Dysphasia, No Sinus Congestion, No Post Nasal Drip, No Sore Throat, No Other Pulmonary: No Dyspnea, No Cough, No Pleuritic Chest Pain, No Other Cardiovascular: No: Chest Pain, Palpitations, Orthopnea, Paroxysmal Noc. Dyspnea, Edema, Lt Headedness, Other Objective-Cardiology Exam Last Set of Vital Signs Vital Signs 12/30/21 12/30/21 12/30/21 04:22 06:00 07:55 Temp 37.0 Pulse 71 Resp 14 B/P (MAP) 130/56 (80) Pulse Ox 94 O2 Delivery Nasal Cannula O2 Flow Rate 2.00 FiO2 95 I&O Intake and Output 12/30/21 00:00 Intake Total 2000 ml Balance 2000 ml IV Total 2000 ml General: Alert, Oriented X3, Cooperative HEENT: Atraumatic, PERRLA Neck: Supple, No JVD, No Thyromegaly Lungs: Clear to Auscultation, Normal Air Movement Heart: Regular Rate, Normal S1, Normal S2, No Murmurs Abdomen: Normal Bowel Sounds, Soft, No Tenderness, No Hepatosplenomegaly, No Masses Extremities: No Clubbing, No Cyanosis, No Edema, Normal Pulses, No Tendernes s/Swelling Skin: No Rashes, No Breakdown, No Significant Lesion Neuro: Normal Gait, Normal Speech, Strength at 5/5 X4 Ext, Normal Tone, Sensation Intact Psych/Mental Status: Mental Status NL, Mood NL Results Lab Laboratory Tests 12/29/21 10:21 12/29/21 16:30 12/30/21 00:15 12/30/21 04:05 A/P-Cardiology Admission Diagnosis Coronary artery disease Paroxysmal atrial tachycardia Hypertension Hyperlipidemia Assessment/Plan Coronary artery disease, status post cardiac catheterization done on December 29, 2021 showing mild disease nonobstructive disease Right groin hematoma secondary to bleed after removing the arterial sheath. Mild drop in H&H, does not require transfusion Reassured patient and will follow-up as an outpatient Hypertension, monitor blood pressure as an outpatient Hyperlipidemia, monitor lipids Diabetes mellitus. Instructed on holding metformin for 48 hours. Multiple episodes of paroxysmal atrial tachycardia at night, will discharge on beta-blockers MARTÍNEZ COLLINS MD Dec 30, 2021 08:28
[2021-12-30] MEDS ORDERED: NAPROXEN 250 MG (NAPROSYN) TABLET PO SCH (09:00)
[2021-12-30] MEDS ORDERED: inSUlin ASPART (NovoLOG) 1 UNIT/0.01 ML (CHARGE PER UNIT) SC SCH (12:00)
== END 2021-12-30 15:30 | disposition home or self-care (01) ==
LOC: CATH 11:00 → ICU 18:41 → CATH 12-30 15:30
PROVIDERS: ATTEND Internal Medicine Cardiovascular Disease
DX: I25.10 Atherosclerotic heart disease of native coronary artery without angina pectoris (principal); I10 Essential (primary) hypertension; E78.5 Hyperlipidemia, unspecified; Z79.82 Long term (current) use of aspirin; Z87.891 Personal history of nicotine dependence; E11.9 Type 2 diabetes mellitus without complications; Z86.73 Personal history of transient ischemic attack (TIA), and cerebral infarction without residual deficits; Z79.02 Long term (current) use of antithrombotics/antiplatelets; E66.9 Obesity, unspecified; Z68.34 Body mass index [BMI] 34.0-34.9, adult; J44.9 Chronic obstructive pulmonary disease, unspecified; I65.29 Occlusion and stenosis of unspecified carotid artery
CPT/HCPCS: 36140; 36415; 71045; 72192; 80048; 80053; 80061; 81000; 82947; 83735; 84100; 85007; 85027; 85610; 85730; 86850; 86900; 86901; 87081; 93458

== ENCOUNTER 2022-03-15 13:08 | Observation (INO) | payer MEDICAID ==
[~2022-03-15] VITALS: Ht 165 cm; Wt 89.0 kg
[2022-03-15] VITALS (12 sets, daily range): BP systolic 118–140; BP diastolic 56–81
[~2022-03-15 13:08] MED LIST changes: +ACET-2267 PO; +ALBU2.5V4 INH; +ALBU8.5H6 IH; +ASPI-1238 PO; +ATOR40TA70 PO; +BUDE10.2 IH; +CLOP75TA28 PO; +DESV100T6 PO; +DOCU-143 PO; +FENO145T26 PO; +FERR-74 PO; -HEParin (CATH LAB) 2,000 ML IV ONE; +LACT1TAB19 PO; +LEVO100C4 PO; -LIDOCAINE 1% INJ 20 ML VIAL ONE; +LISI20TA26 PO; +METF-478 PO; +MTC10T PO; +MTP25TSR PO; +NAPR-915 PO; -NS IV 1000 ML 1,000 ML IV SCH; -NS IV 1000 ML 1,000 ML ONE; +OXYB-52 PO; +SIME125T PO; +TIOT18CA2 IH
--- NOTE | 2022-03-15 13:41 | ED General ---
General Chief Complaint: General Problems/Pain Stated Complaint: LOW HEMOGLOBIN Nursing Triage Note: PT STATES SHE WAS SEEN AT THE CLINIC AND THEY FOUND HER TO HAVE LOW HEMAGLOBIN. STATES INCREASED WEAKNESS OVER THE LAST COUPLE WEEKS. Source of Information: Patient Exam Limitations: No Limitations History of Present Illness Date Seen by Provider: Mar 15, 2022 Time Seen by Provider: 13:18 Initial Comments This is a 71-year-old female who presented to the ER via [facility] for concerns of low hemoglobin. She had intake appointment with [facility] and was having increased shortness of breath since December. Fingerstick hemoglobin was 5.8 in office. She does have a history of anemia and takes iron supplements daily. Her last hemoglobin in December was 9.8. She does take Plavix and aspirin daily denies any use of anticoagulants. Denies any hematuria or blood in her stool. No changes in bowel movements. Denies any unusual bruising, fever, chills. Allergies and Home Medications Allergies Coded Allergies: prednisone (Verified Allergy, Intermediate, STATES MAKES FEEL LIKES SHE IS ON METH, 09/19/11) morphine (Verified Adverse Reaction, Mild, CAUSES SEVERE VOMITTING, 09/19/11) CAUSES N/V Patient Home Medication List Home Medication List Reviewed: Yes Acetaminophen (Tylenol Extra Strength) 500 Mg Tablet, 1,000 MG PO TID PRN for PAIN-MILD (1-4), (Reported) Entered as Reported by: RADHA UGARTE on 12/29/211107 Albuterol Sulfate (Albuterol Sulfate) 2.5 Mg/3 Ml (0.083 %) Vial.neb, 2.5 MG INH Q6H PRN for SHORTNESS OF BREATH, (Reported) Entered as Reported by: RADHA UGARTE on 12/29/211107 Albuterol Sulfate (Ventolin Hfa) 1 Puff Puff, 2 PUFF IH Q4H PRN for SHORTNESS OF BREATH, (Reported) Entered as Reported by: RADHA UGARTE on 12/29/211107 Aspirin (Aspirin EC) 81 Mg Tablet.dr, 81 MG PO HS, (Reported) Entered as Reported by: RADHA UGARTE on 12/29/211107 Atorvastatin Calcium (Atorvastatin Calcium) 40 Mg Tablet, 40 MG PO DAILY, (Reported) Entered as Reported by: RADHA UGARTE on 12/29/211107 Budesonide/Formoterol Fumarate (Symbicort 160-4.5 Mcg Inhaler) 160 Mcg-4.5 Mcg/Actuation Hfa.aer.ad, 2 PUFF IH BID, (Reported) Entered as Reported by: RADHA UGARTE on 12/29/211107 Cetirizine HCl (Cetirizine HCl) 10 Mg Tablet, 10 MG PO DAILY, (Reported) Entered as Reported by: RADHA UGARTE on 12/29/211107 Clopidogrel Bisulfate (Clopidogrel) 75 Mg Tablet, 75 MG PO DAILY, (Reported) Entered as Reported by: RADHA UGARTE on 12/29/211107 Desvenlafaxine (Desvenlafaxine ER) 100 Mg Tab.er.24h, 100 MG PO DAILY, (Report ed) Entered as Reported by: RADHA UGARTE on 12/29/211107 Docusate Sodium (Colace) 100 Mg Capsule, 200 MG PO DAILY, (Reported) Entered as Reported by: RADHA UGARTE on 12/29/211107 Fenofibrate Nanocrystallized (Fenofibrate) 145 Mg Tablet, 145 MG PO HS, (Reported) Entered as Reported by: RADHA UGARTE on 12/29/211107 Ferrous Sulfate (Ferrous Sulfate) 325 Mg (65 Mg Iron) Tablet, 325 MG PO HS, (Reported) Entered as Reported by: RADHA UGARTE on 12/29/211107 Glipizide (Glipizide) 5 Mg Tablet, 5 MG PO TID, (Reported) Entered as Reported by: RADHA UGARTE on 12/29/211107 Lactobacillus Acidophilus (Acidophilus) 2 Billion Cell Tablet, 1 EACH PO HS, (Reported) Entered as Reported by: RADHA UGARTE on 12/29/211107 Levothyroxine Sodium (Levothyroxine) 100 Mcg Capsule, 100 MCG PO DAILY, (Reported) Entered as Reported by: RADHA UGARTE on 12/29/211107 Lisinopril (Lisinopril) 20 Mg Tablet, 20 MG PO DAILY, (Reported) Entered as Reported by: RADHA UGARTE on 12/29/211107 Metformin HCl (Metformin HCl ER) 500 Mg Tab.er.24, 500 MG PO BID Prescribed by: MARTÍNEZ COLLINS on 12/29/21 1401 Metoclopramide HCl (Metoclopramide HCl) 10 Mg Tablet, 10 MG PO QID, (Reported) Entered as Reported by: RADHA UGARTE on 12/29/211107 Metoprolol Succinate (Metoprolol Succinate) 25 Mg Tab.er.24h, 25 MG PO HS, (Reported) Entered as Reported by: RADHA UGARTE on 12/29/211107 Naproxen (Naproxen) 500 Mg Tablet, 500 MG PO BID, (Reported) Entered as Reported by: RADHA UGARTE on 12/29/211107 Oxybutynin Chloride (Oxybutynin Chloride ER) 5 Mg Tab.er.24, 5 MG PO HS, (Reported) Entered as Reported by: RADHA UGARTE on 12/29/211107 Simethicone (Gas-X) 125 Mg Tab.chew, 125 MG PO HS, (Reported) Entered as Reported by: RADHA UGARTE on 12/29/211107 Tiotropium [place] (Spiriva) 18 Mcg Aerp, 1 INH IH DAILY, (Reported) Entered as Reported by: RADHA UGARTE on 12/29/211107 Review of Systems Review of Systems Constitutional: see HPI Past Olaeucy-Phwmay-Xioimv Hx Patient Social History Tobacco Use?: No Alcohol Use?: No Pt feels they are or have been: No Immunizations Up To Date Influenza Vaccine Up-to-Date: No; Not Current Past Medical History Surgery/Hospitalization HX: COPD, ARTHRITIS, DM, HTN Appendectomy, Gallbladder COPD High Cholesterol, Hypertension Stroke Reproductive Disorders: No COUNTRY PRINTER History: Tubal Ligation Gastroesophageal Reflux Arthritis, Fibromyalgia, Chronic Back Pain Diabetes, Non-Insulin dep Anxiety, Depression Family Medical History No Pertinent Family Hx Physical Exam Vital Signs Vital Signs - First Documented 03/15/22 13:15 Temp 36.7 Pulse 116 Resp 24 B/P (MAP) 130/70 (90) Pulse Ox 90 O2 Delivery Room Air Capillary Refill : Less Than 3 Seconds Height, Weight, BMI Height: 5'5" Weight: 235lbs. oz. [id number]; 32.00 BMI Method:Stated General Appearance: No Apparent Distress, WD/WN Eyes: Bilateral Eye Normal Inspection, Bilateral Eye PERRL, Bilateral Eye EOMI, Bilateral Eye Conjunctivae Pale HEENT: PERRL/EOMI, Normal ENT Inspection Neck: Full Range of Motion, Normal Inspection, Non Tender Respiratory: Lungs Clear, Normal Breath Sounds, No Accessory Muscle Use, No Respiratory Distress Cardiovascular: Regular Rate, Rhythm, Normal Peripheral Pulses, Systolic Murmur Gastrointestinal: Normal Bowel Sounds, Non Tender, Soft Extremity: Normal Capillary Refill, Normal Inspection, Normal Range of Motion Neurologic/Psychiatric: Alert, Oriented x3, No Motor/Sensory Deficits, Normal Mood/Affect Skin: Warm/Dry, Pallor Progress/Results/Core Measures Suspected Sepsis SIRS Temperature: Pulse: 116 Respiratory Rate: 24 Laboratory Tests 03/15/22 14:05: White Blood Count 14.2H Blood Pressure 130 /70 Mean: 90 Laboratory Tests 03/15/22 14:05: Creatinine 0.78, Platelet Count 674H, Total Bilirubin 0.1 Results/Orders Lab Results Laboratory Tests Test 03/15/22 13:11 03/15/22 14:05 Range/Units Urine Color YELLOW Urine Clarity CLEAR Urine pH 5.0 5-9 Urine Specific [place] 1.025 H 1.016-1.022 Urine Protein NEGATIVE NEGATIVE Urine Glucose (UA) NEGATIVE NEGATIVE Urine Ketones NEGATIVE NEGATIVE Urine Nitrite NEGATIVE NEGATIVE Urine Bilirubin NEGATIVE NEGATIVE Urine Urobilinogen 0.2 < = 1.0 MG/DL Urine Leukocyte Esterase 2+ H NEGATIVE Urine RBC (Auto) NEGATIVE NEGATIVE Urine RBC NONE /HPF Urine WBC 25-50 H /HPF Urine Squamous Epithelial Cells 2-5 /HPF Urine Crystals NONE /LPF Urine Bacteria FEW H /HPF Urine Casts PRESENT /LPF Urine Hyaline Casts 5-10 H /LPF Urine Mucus SMALL H /LPF Urine Culture Indicated YES White Blood Count 14.2 H 4.3-11.0 10^3/uL Red Blood Count 2.23 L 3.80-5.11 10^6/uL Hemoglobin 5.1 *L 11.5-16.0 g/dL Hematocrit 20 *L 35-52 % Mean Corpuscular Volume 89 80-99 fL Mean Corpuscular Hemoglobin 23 L 25-34 pg Mean Corpuscular Hemoglobin Concent 26 L 32-36 g/dL Red Cell Distribution Width 16.9 H 10.0-14.5 % Platelet Count 674 H 130-400 10^3/uL Mean Platelet Volume 9.1 9.0-12.2 fL Immature Granulocyte % (Auto) 1 % Neutrophils (%) (Auto) 71 42-75 % Lymphocytes (%) (Auto) 17 12-44 % Monocytes (%) (Auto) 9 0-12 % Eosinophils (%) (Auto) 1 0-10 % Basophils (%) (Auto) 1 0-10 % Neutrophils # (Auto) 10.0 H 1.8-7.8 10^3/uL Lymphocytes # (Auto) 2.4 1.0-4.0 10^3/uL Monocytes # (Auto) 1.3 H 0.0-1.0 10^3/uL Eosinophils # (Auto) 0.2 0.0-0.3 10^3/uL Basophils # (Auto) 0.1 0.0-0.1 10^3/uL Immature Granulocyte # (Auto) 0.2 H 0.0-0.1 10^3/uL Neutrophils % (Manual) 76 % Lymphocytes % (Manual) 12 % Monocytes % (Manual) 7 % Eosinophils % (Manual) 1 % Basophils % (Manual) 3 % Band Neutrophils 1 % Percent Immature Platelet Fraction 2.6 0.0-7.6 % Polychromasia SLIGHT Hypochromasia SLIGHT Anisocytosis SLIGHT Absolute Reticulocyte Count 166 H 24-90 10e9/uL Percent Reticulocyte Count 7.48 H 0.50-2.40 % Sodium Level 130 L 135-145 MMOL/L Potassium Level 5.6 H 3.6-5.0 MMOL/L Chloride Level 96 L 98-107 MMOL/L Carbon Dioxide Level 27 21-32 MMOL/L Anion Gap 7 5-14 MMOL/L Blood Urea Nitrogen 14 7-18 MG/DL Creatinine 0.78 0.60-1.30 MG/DL Estimat Glomerular Filtration Rate 82 BUN/Creatinine Ratio 18 Glucose Level 145 H 70-105 MG/DL Calcium Level 8.8 8.5-10.1 MG/DL Corrected Calcium 9.4 8.5-10.1 MG/DL Total Bilirubin 0.1 0.1-1.0 MG/DL Aspartate Amino Transf (AST/SGOT) 13 5-34 U/L Alanine Aminotransferase (ALT/SGPT) 7 0-55 U/L Alkaline Phosphatase 51 40-136 U/L Total Protein 6.0 L 6.4-8.2 GM/DL Albumin 3.2 3.2-4.5 GM/DL My Orders Orders - SUZAN CASTELLANOS APRN Ed Iv/Invasive Line Start (03/15/22 13:11) Comprehensive Metabolic Panel (03/15/22 13:11) Type And Screen (03/15/22 13:11) Red Cells Leukocytes Reduced (03/15/22 13:11) Fecal Occult Bedside (03/15/22 14:36) Iron Tibc %Sat & Ferritin (03/15/22 14:45) Smear For Path Review (03/15/22 14:45) Reticulocyte Count (03/15/22 14:45) Ferritin (03/15/22 14:45) Medications Given in ED Vital Signs/I&O 03/15/22 03/15/22 13:15 13:25 Temp 36.7 Pulse 116 Resp 24 B/P (MAP) 130/70 (90) Pulse Ox 90 O2 Delivery Room Air Nasal Cannula Capillary Refill : Less Than 3 Seconds Blood Pressure Mean: 90 Progress Note : Progress Note Patient examined in no acute distress. Vital signs are stable. States that she has had a prior blood transfusion for low hemoglobin in the past unable to call when. We will go ahead and obtain basic labs, perform rectal exam, crossmatch x2 units. Discussed admit with Dr. Almanzar, will admit medical for blood transfusion. Additional lab orders placed for iron, retic, ferritin, and peripheral smear. Noted to have UTI as well. Orders given for Cefepime 1gm IV. Diagnostic Imaging Diagonstic Imaging: Xray Comments [facility], [place] NAME: [facility] REC#: [id number] PT STATUS: REG ER : 1950 PHYSICIAN: SUZAN CASTELLANOS APRN ADMIT DATE: 03/15/22/ER Signed Date of Exam:03/15/22 CHEST 1 VIEW, AP/PA ONLY CHEST 1 VIEW, AP/PA ONLY Indication: Shortness of air Comparison: 12/29/2021 Findings: No focal airspace disease in the visualized lungs. No pleural effusion or pneumothorax. Stable enlargement of cardiac silhouette. Impression: 1. No acute cardiopulmonary process by portable radiography. Dictated by: Dictated on workstation # [id number] Dict: 03/15/22 1538 Trans: 03/15/22 1538 [facility] [id number] Interpreted by: LISSY FELIPE MD Electronically signed by: LISSY FELIPE MD 03/15/22 1538 Departure Communication (Admissions) Time/Spoke to Admitting Phy: 14:46 Dr. Almanzar Impression Primary Impression: Anemia Additional Impression: UTI (urinary tract infection) Disposition: ADMITTED INPATIENT Condition: Stable Admissions Decision to Admit Reason: Admit from ER (General) Decision to Admit/Date: Mar 15, 2022 Time/Decision to Admit Time: 14:46 Departure-Patient Inst. Referrals: [facility] (PCP) Primary Care Physician KATERINE MONCADA (Family) Primary Care Physician SUZAN CASTELLANOS SHELL FISHERMAN Mar 15, 2022 13:41
[2022-03-15 14:23] LABS: ALBUMIN 3.2 GM/DL (3.2-4.5)
[2022-03-15 14:24] LABS: POTASSIUM 5.6 MMOL/L (3.6-5.0)
[2022-03-15 14:25] LABS: CALCIUM 8.8 MG/DL (8.5-10.1)
[2022-03-15 14:28] LABS: BILIRUBIN,TOTAL 0.1 MG/DL (0.1-1.0)
[2022-03-15 14:29] LABS: CREATININE SERUM 0.78 MG/DL (0.60-1.30)
[2022-03-15 14:52] LABS: ABSOLUTE RETIC # 166 10e9/uL (24-90); BASOPHILS # (AUTO) 0.1 10^3/uL (0.0-0.1); BASOPHILS % (AUTO) 1 % (0-10); EOSINOPHILS # (AUTO) 0.2 10^3/uL (0.0-0.3); EOSINOPHILS % (AUTO) 1 % (0-10); MEAN CORPUSCULAR HEMOGLOBIN 23 pg (25-34); MEAN CORPUSCULAR HGB CONC 26 g/dL (32-36); MEAN CORPUSCULAR VOLUME 89 fL (80-99); MONOCYTES # (AUTO) 1.3 10^3/uL (0.0-1.0); MONOCYTES % (AUTO) 9 % (0-12); NEUTROPHILS % (AUTO) 71 % (42-75); RETICULOCYTE % 7.48 % (0.50-2.40)
[2022-03-15 14:56] LABS: BILIRUBIN,URINE NEGATIVE (NEGATIVE); CLARITY,URINE CLEAR; COLOR,URINE YELLOW; GLUCOSE, URINE (UA) NEGATIVE (NEGATIVE); KETONES,URINE NEGATIVE (NEGATIVE); LEUKOCYTE ESTERASE ,URINE 2+ (NEGATIVE); NITRITE,URINE NEGATIVE (NEGATIVE); PROTEIN,URINE NEGATIVE (NEGATIVE)
[2022-03-15 14:56] LABS: HEMATOCRIT 20 % (35-52); HEMOGLOBIN 5.1 g/dL (11.5-16.0); MEAN PLATELET VOLUME 9.1 fL (9.0-12.2); PLATELET COUNT 674 10^3/uL (130-400); WHITE BLOOD COUNT 14.2 10^3/uL (4.3-11.0)
[2022-03-15 14:57] LABS: LYMPHOCYTES # (AUTO) 2.4 10^3/uL (1.0-4.0); LYMPHOCYTES % (AUTO) 17 % (12-44)
[2022-03-15 14:59] LABS: BAND NEUTROPHILS 1 %; BASOPHILS % (MANUAL) 3 %; EOSINOPHILS % (MANUAL) 1 %; HYPOCHROMASIA SLIGHT; LYMPHOCYTES % (MANUAL) 12 %; MONOCYTES % (MANUAL) 7 %; NEUTROPHILS % (MANUAL) 76 %
[2022-03-15 15:00] LABS: ANISOCYTOSIS SLIGHT; POLYCHROMASIA SLIGHT
[2022-03-15 15:07] LABS: BACTERIA,URINE FEW /HPF; WBC,URINE 25-50 /HPF
[2022-03-15] MEDS ORDERED: NS IV 500 ML 500 ML ONE (15:15)
--- NOTE | 2022-03-15 15:40 | Diagnostic Imaging Report ---
CHEST 1 VIEW, AP/PA ONLY Indication: Shortness of air Comparison: 12/29/2021 Findings: No focal airspace disease in the visualized lungs. No pleural effusion or pneumothorax. Stable enlargement of cardiac silhouette. Impression: 1. No acute cardiopulmonary process by portable radiography. Dictated by: Dictated on workstation # [id number]
[2022-03-15] MEDS ORDERED: CEFEPIME INJECTION 1,000 MG in NS (IVPB) 50 ML IV ONE (15:45)
[2022-03-15] MEDS ORDERED: ONDANSETRON 4 MG/2 ML (SDV) Z0FRAN IV PRN (16:45)
[2022-03-15] MEDS ORDERED: RT-ALBUTEROL SULF 2.5 MG/3 ML PRE-MIX VIAL IH PRN (16:45)
[2022-03-15] MEDS ORDERED: FLU QUAD HIGH DOSE 240 MCG/0.7 ML 2022-23 (FLUZONE) IM ONE (17:45)
[2022-03-15] MEDS: CEFEPIME 1,000 MG/NS 50 ML IVPB IV SCH ×4 (18:31→23:29)
[2022-03-15] MEDS: NS IV 1000 ML 1,000 ML IV SCH (18:32)
[2022-03-15] MEDS: FAMOTIDINE 20 MG (PEPCID) TABLET PO SCH (20:00)
[2022-03-15] MEDS: ACETAMINOPHEN 325 MG TABLET PO PRN (20:00)
[2022-03-16] VITALS (8 sets, daily range): BP systolic 143–165; BP diastolic 58–76
[2022-03-16 01:05] LABS: HEMOGLOBIN 6.6 g/dL (11.5-16.0)
[2022-03-16] MEDS ORDERED: NS IV 500 ML 500 ML IV SCH (02:15)
[2022-03-16] MEDS: CEFEPIME 1,000 MG/NS 50 ML IVPB IV SCH ×2 (05:43)
[2022-03-16] MEDS: NS IV 1000 ML 1,000 ML IV SCH ×2 (06:28→22:49)
[2022-03-16] MEDS: UMECLIDINIUM BROMIDE (INCRUSE ELLIPTA) 7'S IH SCH ×2 (07:19→08:10)
[2022-03-16 07:52] LABS: HEMATOCRIT 27 % (35-52); MEAN CORPUSCULAR HEMOGLOBIN 25 pg (25-34); MEAN CORPUSCULAR HGB CONC 30 g/dL (32-36); MEAN CORPUSCULAR VOLUME 85 fL (80-99); PLATELET COUNT 600 10^3/uL (130-400); WHITE BLOOD COUNT 14.2 10^3/uL (4.3-11.0)
[2022-03-16 08:08] LABS: HEMOGLOBIN 8.1 g/dL (11.5-16.0)
[2022-03-16 08:10] LABS: CALCIUM 8.5 MG/DL (8.5-10.1); CREATININE SERUM 0.69 MG/DL (0.60-1.30); POTASSIUM 4.5 MMOL/L (3.6-5.0)
[2022-03-16] MEDS ORDERED: IRON SUCROSE 200 MG/10 ML (VENOFER) VIAL IV SCH (09:00)
[2022-03-16] MEDS: FERROUS SULF 325 MG (IRON) TAB PO SCH (10:03)
[2022-03-16] MEDS: FAMOTIDINE 20 MG (PEPCID) TABLET PO SCH ×2 (10:03→20:29)
[2022-03-16] MEDS ORDERED: LEVO100T7 PO (10:23)
[2022-03-16] MEDS ORDERED: METF-865 PO (10:23)
[2022-03-16] MEDS: cefTRIAXone 1 GM PRE-MIX 50 ML IV SCH (11:16)
--- NOTE | 2022-03-16 11:58 | History & Physical ---
HPI History of Present Illness: 71 yo female presented to ER after being sent from clinic. Reports she has been tired for a couple of months since she had heart cath. Went to clinic for flu shot and check up, they tried to run A1c and found her hemoglobin was low. She is lightheaded, reports she has passed out a couple of times in the last couple of months. She denies blood in stool, urine. Admits black stools that she relates to iron. No vaginal bleeding. Reports she had a large hematoma in her leg for a month or so after her cath which is basically gone now. She does take plavix and aspirin and has had easy bruising ever since she has been on that. Hasn't been taking her GI medicines for a couple of days and so she hasn't been eating well as that makes her feel sick. Last week was sick and vomited a lot, couldn't keep anything down including water. Denies congestion, cough. Last colonoscopy was last year, reports normal. Last EGD she states was years ago. Has been on oral iron for a few years, but has not required transfusions in the past. Source: patient Date seen by provider: Mar 16, 2022 Time Seen by Provider: 11:55 Attending Physician [place] PCP Admitting Physician: Suleman Almanzar MD Attending Physician: Suleman Almanzar MD Consult Date of Admission Mar 15, 2022 at 14:46 Home Medications Home Medications Reviewed patient Home Medication Reconciliation performed by pharmacy medication reconciliations collision repair technician and/or nursing. Patients Allergies have been reviewed. Allergies Coded Allergies: prednisone (Verified Allergy, Intermediate, STATES MAKES FEEL LIKES SHE IS ON METH, 09/19/11) morphine (Verified Adverse Reaction, Mild, CAUSES SEVERE VOMITTING, 09/19/11) CAUSES N/V UGY-Ibwvqv-[place] Hx Patient Social History Smoking Status: Former Smoker (80 pack year history) Former smoker/When Quit: Sep 11, 2013 Alcohol Use?: No (used to drink "libertarian thing") Substance type: Other (history of substance use, quit more than 30 years ago) Have you traveled recently?: No Immunizations Up To Date Influenza Vaccine Up-to-Date: No; Not Current Past Medical History PMHx: DMII CAD COPD GI problems of uncertain etiology SurgHx: Cholecystectomy Appendectomy Colonoscopy Cardiac catheterization Family Medical History Significant Family History: Heart Disease, Lung Disease Review of Systems ([facility]) Constitutional: malaise Respiratory: short of breath Cardiovascular: chest pain (reports occasional pain with activity, difficult to tell if from COPD or heart per her report), palpitations (occasional) Gastrointestinal: see HPI; No abdominal pain; constipation Genitourinary: No dysuria Musculoskeletal: joint pain (chronic), muscle pain (chronic) Reviewed Test Results Reviewed Test Results Lab Laboratory Tests Test 03/15/22 13:11 03/15/22 14:05 03/15/22 14:53 03/16/22 00:55 Range/Units Urine Color YELLOW Urine Clarity CLEAR Urine pH 5.0 5-9 Urine Specific [place] 1.025 H 1.016-1.022 Urine Protein NEGATIVE NEGATIVE Urine Glucose (UA) NEGATIVE NEGATIVE Urine Ketones NEGATIVE NEGATIVE Urine Nitrite NEGATIVE NEGATIVE Urine Bilirubin NEGATIVE NEGATIVE Urine Urobilinogen 0.2 < = 1.0 MG/DL Urine Leukocyte Esterase 2+ H NEGATIVE Urine RBC (Auto) NEGATIVE NEGATIVE Urine RBC NONE /HPF Urine WBC 25-50 H /HPF Urine Squamous Epithelial Cells 2-5 /HPF Urine Crystals NONE /LPF Urine Bacteria FEW H /HPF Urine Casts PRESENT /LPF Urine Hyaline Casts 5-10 H /LPF Urine Mucus SMALL H /LPF Urine Culture Indicated YES White Blood Count 14.2 H 4.3-11.0 10^3/uL Red Blood Count 2.23 L 3.80-5.11 10^6/uL Hemoglobin 5.1 *L 6.6 #*L 11.5-16.0 g/dL Hematocrit 20 *L 23 L 35-52 % Mean Corpuscular Volume 89 80-99 fL Mean Corpuscular Hemoglobin 23 L 25-34 pg Mean Corpuscular Hemoglobin Concent 26 L 32-36 g/dL Red Cell Distribution Width 16.9 H 10.0-14.5 % Platelet Count 674 H 130-400 10^3/uL Mean Platelet Volume 9.1 9.0-12.2 fL Immature Granulocyte % (Auto) 1 % Neutrophils (%) (Auto) 71 42-75 % Lymphocytes (%) (Auto) 17 12-44 % Monocytes (%) (Auto) 9 0-12 % Eosinophils (%) (Auto) 1 0-10 % Basophils (%) (Auto) 1 0-10 % Neutrophils # (Auto) 10.0 H 1.8-7.8 10^3/uL Lymphocytes # (Auto) 2.4 1.0-4.0 10^3/uL Monocytes # (Auto) 1.3 H 0.0-1.0 10^3/uL Eosinophils # (Auto) 0.2 0.0-0.3 10^3/uL Basophils # (Auto) 0.1 0.0-0.1 10^3/uL Immature Granulocyte # (Auto) 0.2 H 0.0-0.1 10^3/uL Neutrophils % (Manual) 76 % Lymphocytes % (Manual) 12 % Monocytes % (Manual) 7 % Eosinophils % (Manual) 1 % Basophils % (Manual) 3 % Band Neutrophils 1 % Percent Immature Platelet Fraction 2.6 0.0-7.6 % Polychromasia SLIGHT Hypochromasia SLIGHT Anisocytosis SLIGHT Absolute Reticulocyte Count 166 H 24-90 10e9/uL Percent Reticulocyte Count 7.48 H 0.50-2.40 % Sodium Level 130 L 135-145 MMOL/L Potassium Level 5.6 H 3.6-5.0 MMOL/L Chloride Level 96 L 98-107 MMOL/L Carbon Dioxide Level 27 21-32 MMOL/L Anion Gap 7 5-14 MMOL/L Blood Urea Nitrogen 14 7-18 MG/DL Creatinine 0.78 0.60-1.30 MG/DL Estimat Glomerular Filtration Rate 82 BUN/Creatinine Ratio 18 Glucose Level 145 H 70-105 MG/DL Calcium Level 8.8 8.5-10.1 MG/DL Corrected Calcium 9.4 8.5-10.1 MG/DL Iron Level 14 L 33-167 ug/dL Total Iron Binding Capacity 350 H 237-330 ug/dL Unsaturated Iron Binding Capacity 336 25-500 ug/dL Transferrin % Saturation 4 L 17-57 % Ferritin 17.4 L 20.0-177.0 ng/mL Total Bilirubin 0.1 0.1-1.0 MG/DL Aspartate Amino Transf (AST/SGOT) 13 5-34 U/L Alanine Aminotransferase (ALT/SGPT) 7 0-55 U/L Alkaline Phosphatase 51 40-136 U/L Total Protein 6.0 L 6.4-8.2 GM/DL Albumin 3.2 3.2-4.5 GM/DL Influenza Type A (RT-PCR) Not Detected Not Detecte Influenza Type B (RT-PCR) Not Detected Not Detecte SARS-CoV-2 RNA (RT-PCR) Not Detected Not Detecte Test 03/16/22 07:45 Range/Units White Blood Count 14.2 H 4.3-11.0 10^3/uL Red Blood Count 3.23 L 3.80-5.11 10^6/uL Hemoglobin 8.1 #L 11.5-16.0 g/dL Hematocrit 27 L 35-52 % Mean Corpuscular Volume 85 80-99 fL Mean Corpuscular Hemoglobin 25 25-34 pg Mean Corpuscular Hemoglobin Concent 30 L 32-36 g/dL Red Cell Distribution Width 15.9 H 10.0-14.5 % Platelet Count 600 H 130-400 10^3/uL Mean Platelet Volume 9.0 9.0-12.2 fL Sodium Level 129 L 135-145 MMOL/L Potassium Level 4.5 3.6-5.0 MMOL/L Chloride Level 98 98-107 MMOL/L Carbon Dioxide Level 23 21-32 MMOL/L Anion Gap 8 5-14 MMOL/L Blood Urea Nitrogen 9 7-18 MG/DL Creatinine 0.69 0.60-1.30 MG/DL Estimat Glomerular Filtration Rate 94 BUN/Creatinine Ratio 13 Glucose Level 101 70-105 MG/DL Calcium Level 8.5 8.5-10.1 MG/DL Radiology CXR: Impression: 1. No acute cardiopulmonary process by portable radiography. Physical Exam-([facility]) Physical Exam Vital Signs VS - Last 72 Hours, by Label 03/15/22 03/15/22 03/15/22 03/15/22 13:15 13:25 15:24 15:29 Temp 36.7 36.7 36.7 Pulse 116 78 75 Resp 24 18 18 B/P (MAP) 130/70 (90) 132/81 139/56 Pulse Ox 90 97 96 O2 Delivery Room Air Nasal Cannula Room Air Room Air 03/15/22 03/15/22 03/15/22 03/15/22 15:34 15:39 16:32 16:54 Temp 36.6 36.6 36.6 Pulse 79 78 84 78 Resp 18 18 22 B/P (MAP) 135/58 140/57 101/61 Pulse Ox 96 95 95 95 O2 Delivery Room Air Room Air Room Air FiO2 21 03/15/22 03/15/22 03/15/22 03/15/22 17:00 18:25 19:43 20:10 Temp 36.4 36.8 Pulse 88 90 Resp 20 20 B/P (MAP) 118/62 124/60 (81) Pulse Ox 94 99 95 O2 Delivery Nasal Cannula Nasal Cannula Nasal Cannula Nasal Cannula O2 Flow Rate 4.00 4.00 3.00 3.00 03/15/22 03/15/22 03/15/22 03/15/22 21:01 21:19 22:15 23:00 Temp 36.8 36.4 36.2 Pulse 90 81 Resp 20 20 18 B/P (MAP) 124/60 135/68 135/63 (87) Pulse Ox 99 99 99 98 O2 Delivery Nasal Cannula Nasal Cannula Nasal Cannula Nasal Cannula O2 Flow Rate 3.00 3.00 3.00 3.00 03/15/22 03/16/22 03/16/22 03/16/22 23:23 02:58 03:20 03:25 Temp 36.2 36.8 36.9 36.9 Pulse 81 78 79 79 Resp 18 18 18 18 B/P (MAP) 135/63 150/61 150/58 150/58 (88) Pulse Ox 98 97 98 98 O2 Delivery Nasal Cannula Nasal Cannula Nasal Cannula Nasal Cannula O2 Flow Rate 3.00 3.00 3.00 3.00 3.00 03/16/22 03/16/22 03/16/22 03/16/22 05:32 07:19 07:57 08:00 Temp 37.1 36.8 Pulse 79 86 Resp 20 18 B/P (MAP) 159/70 149/74 (99) Pulse Ox 95 98 97 97 O2 Delivery Nasal Cannula Nasal Cannula Nasal Cannula Nasal Cannula O2 Flow Rate 3.00 4.00 4.00 4.00 03/16/22 03/16/22 11:28 16:00 Temp 36.8 37.3 Pulse 81 84 Resp 18 16 B/P (MAP) 143/72 (95) 145/76 (99) Pulse Ox 97 95 O2 Delivery Nasal Cannula Nasal Cannula O2 Flow Rate 4.00 3.00 Capillary Refill : Less Than 3 Seconds General Appearance: no apparent distress Respiratory: lungs clear Cardiovascular: regular rate, rhythm, no murmur Gastrointestinal: normal bowel sounds, non tender, soft Extremities: no pedal edema Neurologic/Psychiatric: alert, normal mood/affect, oriented x 3 Skin: warm/dry Assessment/Plan Assessment/Plan Admission Status: Observation (1) Anemia Status: Acute Assessment & Plan: Reports unknown diagnosis related to her iron supplementation. Iron studies with low ferritin, high TIBC and high reticulocyte count consistent with iron deficiency. No clear evidence of bleeding. Status post 3 units PRBCs, hemoglobin 8. Discussed would recommend EGD/colo (last done 10 years ago), but if hemoglobin stable, can do outpatient. May also need to see Heme, especially if scopes unrevealing. -Venofer ordered Qualifiers: Qualified Codes: D50.9 - Iron deficiency anemia, unspecified (2) COPD (chronic obstructive pulmonary disease) Status: Chronic Assessment & Plan: Resume home inhalers, albuterol prn. On 4 lpm supplemental oxygen at baseline. (3) UTI (urinary tract infection) Status: Acute Assessment & Plan: Urine with few bacteria, 10-25 WBC. Given cefepime in ER, changed to ceftriaxone, culture pending. (4) Hypertension Status: Chronic Assessment & Plan: Resume home anti-hypertensives. Qualifiers: Qualified Codes: I10 - Essential (primary) hypertension (5) Hyperlipidemia Status: Chronic Assessment & Plan: Resume home statin. (6) Coronary artery disease Status: Chronic Assessment & Plan: Cath in 12/2021 with mild non obstructive disease. Hold aspirin and Plavix given severe anemia. (7) Diabetes Status: Chronic Assessment & Plan: Sliding scale insulin, diabetic diet. Qualifiers: Qualified Codes: E11.69 - Type 2 diabetes mellitus with other specified complication (8) Hypothyroidism Status: Chronic Assessment & Plan: Home levothyroxine (9) Gastroparesis Status: Chronic Assessment & Plan: Resume home meds. SULEMAN ALMANZAR MD Mar 16, 2022 11:58
[2022-03-16 19:13] LABS: HEMOGLOBIN 7.7 g/dL (11.5-16.0)
[2022-03-16] MEDS: METOCLOPRAMIDE 10 MG (REGLAN) TAB PO SCH (20:29)
[2022-03-16] MEDS: ACETAMINOPHEN 325 MG TABLET PO PRN (20:30)
[2022-03-16] MEDS: RT-ALBUTEROL/IPRATROPIUM 3 ML (DUONEB) VIAL INH PRN (20:51)
[2022-03-16] MEDS: inSUlin ASPART (NovoLOG) 1 UNIT/0.01 ML (CHARGE PER UNIT) SC SCH (21:00)
[2022-03-16] MEDS ORDERED: NON-FORMULARY MEDICATION 1 EA EA (Budesonide/Formoterol Fumarate (Symbicort 160-4.5 Mcg In IH SCH (21:00)
[2022-03-16] MEDS: RT--FLUTICASONE/SALMETEROL 232-14 (AIRDUO RespiCLICK) IH SCH (22:01)
[2022-03-17] VITALS: BP 142/76
[2022-03-17] MEDS: RT-ALBUTEROL/IPRATROPIUM 3 ML (DUONEB) VIAL INH PRN (02:26)
[2022-03-17 03:33] VITALS: BP 134/65
[2022-03-17 04:21] VITALS: BP 142/76
[2022-03-17 06:05] LABS: HEMATOCRIT 31 % (35-52); HEMOGLOBIN 8.9 g/dL (11.5-16.0); MEAN CORPUSCULAR HEMOGLOBIN 25 pg (25-34); MEAN CORPUSCULAR HGB CONC 29 g/dL (32-36); MEAN CORPUSCULAR VOLUME 88 fL (80-99); MEAN PLATELET VOLUME 9.1 fL (9.0-12.2); PLATELET COUNT 262 10^3/uL (130-400); WHITE BLOOD COUNT 11.3 10^3/uL (4.3-11.0)
[2022-03-17] MEDS: inSUlin ASPART (NovoLOG) 1 UNIT/0.01 ML (CHARGE PER UNIT) SC SCH ×3 (06:15→16:24)
[2022-03-17 06:17] LABS: POTASSIUM 4.9 MMOL/L (3.6-5.0)
[2022-03-17 06:18] LABS: CALCIUM 8.9 MG/DL (8.5-10.1)
[2022-03-17 06:23] LABS: CREATININE SERUM 0.65 MG/DL (0.60-1.30)
[2022-03-17] MEDS: METOCLOPRAMIDE 10 MG (REGLAN) TAB PO SCH ×2 (06:28→12:32)
[2022-03-17] MEDS ORDERED: LEVOTHYROXINE 100 MCG (LEVOTHROID) TAB PO SCH (06:30)
[2022-03-17] MEDS ORDERED: VENlafaxine XR 75 MG (EFFEXOR XR) CAP PO SCH (07:00)
[2022-03-17 07:50] VITALS: BP 163/77
[2022-03-17] MEDS ORDERED: UMECLIDINIUM BROMIDE (INCRUSE ELLIPTA) 7'S IH SCH (08:00)
[2022-03-17] MEDS: RT--FLUTICASONE/SALMETEROL 232-14 (AIRDUO RespiCLICK) IH SCH (08:02)
[2022-03-17] MEDS: RT-ALBUTEROL/IPRATROPIUM 3 ML (DUONEB) VIAL INH SCH ×3 (08:02→15:51)
[2022-03-17] MEDS: UMECLIDINIUM BROMIDE (INCRUSE ELLIPTA) 7'S IH SCH (08:03)
[2022-03-17] MEDS: FAMOTIDINE 20 MG (PEPCID) TABLET PO SCH (08:37)
[2022-03-17] MEDS: FERROUS SULF 325 MG (IRON) TAB PO SCH (08:37)
[2022-03-17] MEDS ORDERED: NON-FORMULARY MEDICATION 1 EA EA (Cetirizine HCl 10 MG) PO SCH (09:00)
[2022-03-17] MEDS ORDERED: DESVENLAFAXINE 100 MG PO SCH (09:00)
[2022-03-17] MEDS ORDERED: DOCUSATE SODIUM 100 MG (COLACE) CAP PO SCH (09:00)
[2022-03-17] MEDS ORDERED: lisINopril 20 MG (PRINIVIL) TABLET PO SCH (09:00)
[2022-03-17] MEDS ORDERED: LORATADINE (CLARITIN) 10 MG TAB PO SCH (09:00)
[2022-03-17] MEDS: NS IV 1000 ML 1,000 ML IV SCH (12:30)
[2022-03-17] MEDS: cefTRIAXone 1 GM PRE-MIX 50 ML IV SCH (12:30)
[2022-03-17 12:32] VITALS: BP 130/66
--- NOTE | 2022-03-17 12:33 | Discharge Summary ---
Discharge [facility] Discharge Medications Continued Medications: Acetaminophen (Tylenol Extra Strength) 500 Mg Tablet 1000 MG PO TID PRN for PAIN-MILD (1-4), TAB Albuterol Sulfate (Albuterol Sulfate) 2.5 Mg/3 Ml (0.083 %) Vial.neb 2.5 MG INH Q6H PRN for SHORTNESS OF BREATH, EA Albuterol Sulfate (Ventolin Hfa) 1 Puff Puff 2 PUFF IH Q4H PRN for SHORTNESS OF BREATH, EA Aspirin (Aspirin EC) 81 Mg Tablet.dr 81 MG PO 1800, TAB Atorvastatin Calcium (Atorvastatin Calcium) 40 Mg Tablet 40 MG PO DAILY, TAB Budesonide/Formoterol Fumarate (Symbicort 160-4.5 Mcg Inhaler) 160 Mcg-4.5 Mcg/Actuation Hfa.aer.ad 2 PUFF IH BID, EA Cetirizine HCl (Cetirizine HCl) 10 Mg Tablet 10 MG PO DAILY, TAB Desvenlafaxine (Desvenlafaxine ER) 100 Mg Tab.er.24h 100 MG PO DAILY, TAB Docusate Sodium (Colace) 100 Mg Capsule 200 MG PO DAILY, CAP TAKES 2 CAPSULES Fenofibrate Nanocrystallized (Fenofibrate) 145 Mg Tablet 145 MG PO 1800, TAB Ferrous Sulfate (Ferrous Sulfate) 325 Mg (65 Mg Iron) Tablet 325 MG PO 1800, TAB Glipizide (Glipizide) 5 Mg Tablet 5 MG PO TIDWM, TAB Lactobacillus Acidophilus (Acidophilus) 2 Billion Cell Tablet 1 EACH PO 1800, TAB Levothyroxine Sodium (Levothyroxine Sodium) 100 Mcg Tablet 100 MCG PO DAILY, TAB Lisinopril (Lisinopril) 20 Mg Tablet 20 MG PO DAILY, TAB Metformin HCl (Metformin HCl ER) 500 Mg Tab.er.24h 500 MG PO BID WITH MEALS, TAB Metoclopramide HCl (Metoclopramide HCl) 10 Mg Tablet 10 MG PO QIDACHS, TAB Metoprolol Succinate (Metoprolol Succinate) 25 Mg Tab.er.24h 25 MG PO 1800, TAB Oxybutynin Chloride (Oxybutynin Chloride ER) 5 Mg Tab.er.24 5 MG PO 1800, TAB Simethicone (Gas-X) 125 Mg Tab.chew 125 MG PO 1800, TAB Tiotropium [place] (Spiriva) 18 Mcg Aerp 1 INH IH DAILY, EA Discontinued Medications: Clopidogrel Bisulfate (Clopidogrel) 75 Mg Tablet 75 MG PO DAILY, TAB Naproxen (Naproxen) 500 Mg Tablet 500 MG PO BID, TAB Patient Instructions Goal/Follow Up Appt: Follow up with primary provider within a week. Talk to her about possible referrals for scopes and further anemia work-up. Consider repeat iron infusions. [facility] to [facility] For: Fever, dizziness, chest pain, severe fatigue Activity & Diet Discharge Diet: ADA Diet Activity as Tolerated: Yes SULEMAN PINTO MD Mar 17, 2022 12:33
[2022-03-17] MEDS: ACETAMINOPHEN 325 MG TABLET PO PRN ×2 (14:22→14:55)
[2022-03-17 15:56] VITALS: BP 130/66
--- NOTE | 2022-03-17 16:46 | Discharge Summary ---
WENDY BROOKS 03/17/22 1635: Discharge Summary Hospital Course Problems Reviewed?: Yes Problems/Diagnosis: (1) Anemia Status: Acute Assessment & Plan: Reports unknown diagnosis related to her iron supplementation. Iron studies with low ferritin, high TIBC and high reticulocyte count consistent with iron deficiency. No clear evidence of bleeding. Status post 3 units PRBCs, hemoglobin 8. Discussed would recommend EGD/colo (last done 10 years ago), but if hemoglobin stable, can do outpatient. May also need to see Heme, especially if scopes unrevealing. -Venofer ordered Patient has symptom improvement with infusions and the iron supplementations. Her Hgb increased over night. Patient prefers not to continue IV iron outpatient due to hematoma formation with IV access. She will continue on oral iron and follow up out patient. Stop plavix and naproxen due to anemia and easy bleeding/bruising. Patient needs to schedule outpatient colonoscopy and EGD to look for bleeding in the GI tract. Qualifiers: Qualified Codes: D50.9 - Iron deficiency anemia, unspecified (2) COPD (chronic obstructive pulmonary disease) Status: Chronic Assessment & Plan: Resume home inhalers, albuterol prn. On 4 lpm supplemental oxygen at baseline. (3) UTI (urinary tract infection) Status: Acute Assessment & Plan: Urine with few bacteria, 10-25 WBC. Given cefepime in ER, changed to ceftriaxone, culture pending. DC antibiotics on discharge. (4) Hypertension Status: Chronic Assessment & Plan: Resume home anti-hypertensives. Qualifiers: Qualified Codes: I10 - Essential (primary) hypertension (5) Hyperlipidemia Status: Chronic Assessment & Plan: Resume home statin. (6) Coronary artery disease Status: Chronic Assessment & Plan: Cath in 12/2021 with mild non obstructive disease. Hold aspirin and Plavix given severe anemia. (7) Diabetes Status: Chronic Assessment & Plan: Sliding scale insulin, diabetic diet. Qualifiers: Qualified Codes: E11.69 - Type 2 diabetes mellitus with other specified com plication (8) Hypothyroidism Status: Chronic Assessment & Plan: Home levothyroxine (9) Gastroparesis Status: Chronic Assessment & Plan: Resume home meds. Hospital Course Date of Admission: Mar 15, 2022 at 14:46 Admission Diagnosis : Family Physician/Provider: Lynn Carroll Date of Discharge: 03/17/22 Discharge Diagnosis: [Iron Deficiency Anemia] Hospital Course: [Patient was admitted due to anemia with a hemoglobin of 5.1. Patient had felt weak and fatigued. Patient was given blood transfusions, oral iron and IV iron. Patient's blood counts increased and stabilized. Patient was found to have a UTI which was treated with antibiotics. She was given breathing treatments for her COPD, which she feels has returned to baseline. Patient has been instructed to follow up with GI for scopes and to continue on oral iron.] Labs and Pending Lab Test: Laboratory Tests 03/16/22 18:30: Hemoglobin 7.7L, Hematocrit 26L 03/16/22 20:44: Glucometer 132H 03/17/22 05:54: Glucometer 119H 03/17/22 05:56: Hemoglobin 8.9L, Hematocrit 31L, White Blood Count 11.3H, Red Blood Count 3.50L, Mean Corpuscular Volume 88, Mean Corpuscular Hemoglobin 25, Mean Corpuscular Hemoglobin Concent 29L, Red Cell Distribution Width 16.8H, Platelet Count 262, Mean Platelet Volume 9.1, Sodium Level 133L, Potassium Level 4.9, Chloride Level 101, Carbon Dioxide Level 24, Anion Gap 8, Blood Urea Nitrogen 5L, Creatinine 0.65, Estimat Glomerular Filtration Rate 95, BUN/Creatinine Ratio 8, Glucose Level 111H, Calcium Level 8.9 03/17/22 11:40: Glucometer 127H 03/17/22 15:53: Glucometer 189H Microbiology 03/15/22 Urine Culture - Preliminary, Resulted Culture In Progress Home Meds Active Reported Levothyroxine Sodium 100 Mcg Tablet 100 Mcg PO DAILY Metformin HCl ER (Metformin HCl) 500 Mg Tab.er.24h 500 Mg PO BID WITH MEALS Desvenlafaxine ER (Desvenlafaxine) 100 Mg Tab.er.24h 100 Mg PO DAILY Symbicort 160-4.5 Mcg Inhaler (Budesonide/Formoterol Fumarate) 160 Mcg-4.5 Mcg/Actuation Hfa.aer.ad 2 Puff IH BID Spiriva (Tiotropium [place]) 18 Mcg Aerp 1 Inh IH DAILY Oxybutynin Chloride ER (Oxybutynin Chloride) 5 Mg Tab.er.24 5 Mg PO 1800 Gas-X (Simethicone) 125 Mg Tab.chew 125 Mg PO 1800 Metoprolol Succinate 25 Mg Tab.er.24h 25 Mg PO 1800 Metoclopramide HCl 10 Mg Tablet 10 Mg PO QIDACHS Lisinopril 20 Mg Tablet 20 Mg PO DAILY Acidophilus (Lactobacillus Acidophilus) 2 Billion Cell Tablet 1 Each PO 1800 Glipizide 5 Mg Tablet 5 Mg PO TIDWM Ferrous Sulfate 325 Mg (65 Mg Iron) Tablet 325 Mg PO 1800 Fenofibrate (Fenofibrate Nanocrystallized) 145 Mg Tablet 145 Mg PO 1800 Colace (Docusate Sodium) 100 Mg Capsule 200 Mg PO DAILY TAKES 2 CAPSULES Cetirizine HCl 10 Mg Tablet 10 Mg PO DAILY Atorvastatin Calcium 40 Mg Tablet 40 Mg PO DAILY Aspirin EC (Aspirin) 81 Mg Tablet.dr 81 Mg PO 1800 Ventolin Hfa (Albuterol Sulfate) 1 Puff Puff 2 Puff IH Q4H PRN Albuterol Sulfate 2.5 Mg/3 Ml (0.083 %) Vial.neb 2.5 Mg INH Q6H PRN Tylenol Extra Strength (Acetaminophen) 500 Mg Tablet 1,000 Mg PO TID PRN Assessment/Pt DC Instructions Follow up with GI to get colonoscopy and EGD to look for sources of bleeding. Please continue oral iron. Follow up with PCP. Contact your physician with questions or concerns. Discharge Diet: ADA Diet Discharge Physical Examination Allergies: Coded Allergies: prednisone (Verified Allergy, Intermediate, STATES MAKES FEEL LIKES SHE IS ON METH, 09/19/11) morphine (Verified Adverse Reaction, Mild, CAUSES SEVERE VOMITTING, 09/19/11) CAUSES N/V General Appearance: No Apparent Distress Respiratory: No Accessory Muscle Use, No Respiratory Distress, Wheezing Cardiovascular: Regular Rate, Rhythm, Systolic Murmur Gastrointestinal: Normal Bowel Sounds, Non Tender, Soft Skin: Normal Color, Warm/Dry Neurologic/Psychiatric: Alert, Oriented x3, No Motor/Sensory Deficits Discharge Summary Date of Admission Mar 15, 2022 at 14:46 Date of Discharge Discharge Date: Mar 17, 2022 SULEMAN PINTO MD 03/17/22 1816: Discharge Summary Discharge Physical Examination Allergies: Coded Allergies: prednisone (Verified Allergy, Intermediate, STATES MAKES FEEL LIKES SHE IS ON METH, 09/19/11) morphine (Verified Adverse Reaction, Mild, CAUSES SEVERE VOMITTING, 09/19/11) CAUSES N/V Supervisory-Addendum Brief Verification & Attestation Participated in pt care: history, MDM, physical Personally performed: exam, history, MDM, supervision of care Care discussed with: Medical Student Procedures: n/a I did my own history and exam which confirmed that documented by the medical student. I directed the plan of care as documented by the medical student. Pt with large ecchymosis on left antecubital fossa from IV attempt. She believes her anemia came from her post cath hematoma in December, which is now resolved. We did stop Plavix and naproxen, but continued aspirin for CAD. Possible UTI- treated with 3 days of broad spectrum abx inpatient, should be fully treated for uncomplicated UTI. WENDY BROOKS Mar 17, 2022 16:35 SULEMAN PINTO MD Mar 17, 2022 18:16
[2022-03-17] MEDS ORDERED: NON-FORMULARY MEDICATION 1 EA EA (Lactobacillus Acidophilus (Acidophilus) 1 EACH) PO SCH (18:00)
[2022-03-17] MEDS ORDERED: SIMETHICONE 80 MG (MYLICON) CHEW PO SCH (18:00)
[2022-03-17] MEDS ORDERED: LACTOBACILLUS ACIDOPHILUS (PROBIOTIC) CAPSULE PO SCH (18:00)
[2022-03-17] MEDS ORDERED: OXYBUTYNIN CHLORIDE 5 MG PO SCH (18:00)
[2022-03-17] MEDS ORDERED: OXYBUTYNIN (DITROPAN) 5 MG TAB PO SCH (18:00)
[2022-03-17] MEDS ORDERED: NON-FORMULARY MEDICATION 1 EA EA (Fenofibrate Nanocrystallized (Fenofibrate) 145 MG) PO SCH (18:00)
[2022-03-17] MEDS ORDERED: FERROUS SULF 325 MG (IRON) TAB PO SCH (18:00)
[2022-03-17] MEDS ORDERED: NON-FORMULARY MEDICATION 1 EA EA (Simethicone (Gas-X) 125 MG) PO SCH (18:00)
[2022-03-17] MEDS ORDERED: FENOFIBRATE 134 MG (LOFIBRA) CAPSULE PO SCH (18:00)
== END 2022-03-17 16:25 | disposition home or self-care (01) ==
LOC: EDUNIT# 13:08 → ER 13:11 → 4TH 14:46 → UNDOADMOB 14:46 → 4TH 16:57 → UNDODISOB 03-17 16:25
PROVIDERS: ADMIT Family Medicine; ATTEND Family Medicine
DX: D50.9 Iron deficiency anemia, unspecified (principal); J44.9 Chronic obstructive pulmonary disease, unspecified; N39.0 Urinary tract infection, site not specified; I10 Essential (primary) hypertension; E78.5 Hyperlipidemia, unspecified; I25.10 Atherosclerotic heart disease of native coronary artery without angina pectoris; E03.9 Hypothyroidism, unspecified; Z79.890 Hormone replacement therapy; Z79.899 Other long term (current) drug therapy; E11.43 Type 2 diabetes mellitus with diabetic autonomic (poly)neuropathy; K31.84 Gastroparesis; Z87.891 Personal history of nicotine dependence; Z79.84 Long term (current) use of oral hypoglycemic drugs; Z23 Encounter for immunization; Z20.822 Contact with and (suspected) exposure to COVID-19
CPT/HCPCS: 36415; 36430; 71045; 80048; 80053; 81000; 82728; 82947; 83540; 83550; 85007; 85014; 85018; 85027; 85045; 85055; 86850; 86900; 86901; 86920; 87088; 87636; 90471; 90662; 94640; 94760; 96366; 96372; 96375; 96376; G0378

== ENCOUNTER → 2022-05-04 | Outpatient (CLI) | payer MEDICAID ==
[~2022-05-04] VITALS: Ht 165 cm; Wt 85.6 kg
[~2022-05-04] MED LIST changes: +LEVO100T7 PO; +METF-865 PO
== END | disposition home or self-care (01) ==
LOC: PREOP 06:06
PROVIDERS: ATTEND Surgery
DX: Z01.818 Encounter for other preprocedural examination (principal)

== ENCOUNTER 2022-05-17 08:53 | Day surgery (SDC) | payer MEDICAID ==
[~2022-05-17] VITALS: Ht 165.1 cm; Wt 85.6 kg
[2022-05-17] MEDS ORDERED: LACTATED RINGERS 1,000 ML IV STA (09:05)
--- NOTE | 2022-05-17 09:11 | Progress Note-Pre Operative ---
Pre-Operative Progress Note Date of Available H&P: Apr 27, 2022 Date H&P Reviewed: May 17, 2022 Time H&P Reviewed: 09:11 History & Physical: H&P Reviewed, Patient Examed, No changes noted Pre-Operative Diagnosis: Iron Defiency Anemia SWETA BELL DO May 17, 2022 09:11
[2022-05-17 09:12] VITALS: BP 152/108
[2022-05-17] MEDS ORDERED: HURRICAINE EXT TUBE (BENZOCAINE) XX PRN (09:15)
[2022-05-17] MEDS ORDERED: RT-ALBUTEROL SULF 2.5 MG/3 ML PRE-MIX VIAL INH ONE (10:15)
[2022-05-17] MEDS ORDERED: MIDAZOLAM 2 MG/2 ML (VERSED) VIAL ONE (11:53)
[2022-05-17] MEDS ORDERED: PROPOFOL INJECTION 50 ML IV ONE ×2 (11:53→12:49)
[2022-05-17] MEDS ORDERED: KETAMINE 50 MG/5 ML SYRINGE ONE (12:08)
[2022-05-17 12:50] VITALS: BP 135/60
[2022-05-17] MEDS ORDERED: PANT40TA2 PO (12:52)
--- NOTE | 2022-05-17 12:52 | Discharge Inst-Simple/Standard ---
Discharge Inst-Standard Discharge Medications New, Converted or Re-Newed RX: Transmitted to Pharmacy Patient Instructions/Follow Up Plan of Care/Instructions/FU: 2 weeks sarbjit Activity as Tolerated: Yes Discharge Diet: Regular Diet SWETA BELL DO May 17, 2022 12:52
[2022-05-17 12:55] VITALS: BP 139/65
[2022-05-17 13:05] VITALS: BP 163/84
[2022-05-17 13:54] VITALS: BP 163/84
--- NOTE | 2022-05-17 14:45 | Anesthesia-General Post-Op ---
MAC Patient Condition Mental Status/LOC: Same as Preop Cardiovascular: Satisfactory Nausea/Vomiting: Absent Respiratory: Satisfactory Pain: Controlled Complications: Absent Post Op Complications Complications None Follow Up Care/Instructions Patient Instructions None needed. Anesthesiology Discharge Order Discharge Order Patient is doing well, no complaints, stable vital signs, no apparent adverse anesthesia problems. No complications reported per nursing. NORMAN PEDERSON CRNA May 17, 2022 14:45
--- NOTE | 2022-05-17 21:24 | OPERATIVE REPORT ---
DATE OF SERVICE: 05/17/2022 PREOPERATIVE DIAGNOSIS: Iron deficiency anemia. POSTOPERATIVE DIAGNOSES: Duodenal changes of the mucosa, questionable possible healing ulcer, slight gastritis, hiatal hernia, colon polyps, diverticulosis. PROCEDURE: EGD with biopsies, colonoscopy with hot biopsy polypectomy x3. SURGEON: Sweta Montez DO ANESTHESIA: Per POLYTECHNIC REGISTRAR. ESTIMATED BLOOD LOSS: None. COMPLICATIONS: None. INDICATIONS: The patient is a 71-year-old female with iron deficiency anemia. She understands risks and benefits of procedure and wished to proceed. Consent was signed and in chart. DESCRIPTION OF PROCEDURE: The patient was taken to the endoscopy suite, placed in left lateral recumbent position. Timeout was performed. The scope was inserted in the mouth, down the esophagus, stomach and the duodenum without difficulty. No polyps, masses, or ulceration in the second portion of the duodenum. First portion, mucosal changes of the duodenum and questionable healing ulcer, also fibrinous particle present. Biopsy of this area was obtained. Scope was slowly retracted back to the stomach where it was further insufflated. Slight gastritis changes. Biopsy of the antrum was obtained. Scope was retroflexed noting a hiatal hernia, noting no other pathology. Scope was returned to its normal position, slowly withdrawn to the distal esophagus. No polyps, masses or ulcerations. Biopsy of GE junction was obtained. The scope was slowly retracted back until completely removed. The patient tolerated the procedure well. Digital rectal exam was then performed. No palpable polyps, masses or ulcerations. Scope was inserted into the rectum and advanced all the way to the cecum with minimal difficulty. Prep was adequate with irrigation and suction. Scope was then slowly retracted back. No polyps, mass or ulcerations in the cecum, ascending colon. In the transverse colon, a small polyp was present, which hot biopsy polypectomy was performed. Scope was slowly retracted with a polyp in the descending colon, which hot biopsy polypectomy was performed. Scope was then slowly retracted back. No polyps, masses, ulcerations in the sigmoid colon. Diverticula moderate to significant amount present. Scope was then slowly retracted back to the rectum where another small polyp was present, which hot biopsy polypectomy was performed. Scope was retroflexed, noting no other pathology. Scope was returned to its normal position and slowly withdrawn until completely removed. The patient tolerated the procedure well without complication and was taken to recovery room in stable condition. Job ID: [id number] DocumentID: [id number] Dictated Date: 05/17/2022 12:56:03 Pharmacy Care Coordinator Date: 05/17/2022 21:22:00 Dictated By: SWETA MONTEZ DO
== END 2022-05-17 14:00 | disposition home or self-care (01) ==
LOC: ENDO 08:53
PROVIDERS: ATTEND Surgery
DX: K63.5 Polyp of colon (principal); K62.1 Rectal polyp; K31.89 Other diseases of stomach and duodenum; K29.70 Gastritis, unspecified, without bleeding; K44.9 Diaphragmatic hernia without obstruction or gangrene; K57.30 Diverticulosis of large intestine without perforation or abscess without bleeding; D50.9 Iron deficiency anemia, unspecified; Z87.891 Personal history of nicotine dependence
CPT/HCPCS: 82947; 88305; 94640